=== PATIENT | male | born 1955 | race Caucasian/White ===

== ENCOUNTER → 2021-05-11 | Outpatient (CLI) | payer MEDICARE | LOC: ORTHO 08:45 | PROVIDERS: ATTEND Orthopaedic Surgery | DX: M65.331 Trigger finger, right middle finger (principal); M65.342 Trigger finger, left ring finger; M65.341 Trigger finger, right ring finger | CPT/HCPCS: 99202 ==

== ENCOUNTER 2021-06-07 05:30 | Outpatient (CLI) | payer MEDICARE ==
[~2021-06-07] VITALS: Ht 188 cm; Wt 111.9 kg
[2021-06-07] MEDS ORDERED: LOSA100T57 PO (10:23)
[2021-06-07] MEDS ORDERED: [UNRECOGNIZED DRUG - CODE] PO (10:23)
[2021-06-07] MEDS ORDERED: ATOR40TA70 PO (10:23)
[2021-06-07] MEDS ORDERED: ASPI-999 PO (10:23)
[2021-06-07] MEDS ORDERED: METO50TA7 PO (10:23)
[2021-06-07] MEDS ORDERED: HYDR25TA4 PO (10:23)
== END 2021-06-07 10:26 | disposition home or self-care (01) ==
LOC: PREOP 05:30
PROVIDERS: ATTEND Orthopaedic Surgery
DX: Z01.818 Encounter for other preprocedural examination (principal)

== ENCOUNTER 2021-06-14 06:21 | Day surgery (SDC) | payer MEDICARE ==
[~2021-06-14] VITALS: Ht 188 cm; Wt 111.9 kg
[2021-06-14] VITALS (7 sets, daily range): BP systolic 101–179; BP diastolic 74–106
[~2021-06-14 06:21] MED LIST: ASPI-999 PO; ATOR40TA70 PO; HYDR25TA4 PO; LOSA100T57 PO; METO50TA7 PO; [UNRECOGNIZED DRUG - CODE] PO
--- OUTSIDE RECORDS SUMMARY | 2021-06-14 06:24 | XMS REPORT | CCD ---
Author Author Ross Rousseau D.O., DO [facility] Address [address] [place] [address] Phone Care Team Providers Care Disc Pad Grinder Name Role Phone PP Unavailable CCM Unavailable Summary Purpose Interface Exchange Insurance Providers Payer name Policy type / Coverage type Covered republican ID Effective Begin Date Effective End Date WPS MEDICARE PART B [place] Medicare Part B [id number] Unknown AAR Medicare Part B [id number] Unknown Family History Family History data not found Social History Social History Element Codes Description Effective Dates Marital status Unknown 05/04/2021 Number of children Unknown 1 05/04/2021 Employment Unknown Retired 05/04/[address]: 712289331 Has never smoked or chewed tobacco 05/04/[address]: 729283 Currently drinks alcohol 05/04 Has the patient ever used illegal drugs? Unknown Has nev er used illegal drugs 05/04/2021 Allergies, Adverse Reactions, Alerts Substance Reaction Codes Entered Date Inactivated Date Status * NO KNOWN FOOD ALLERGIES Unknown 05/04/2021 No Inactiv e Date Active * NO KNOWN ENVIRONMENTAL ALLERGIES Unknown 05/04/2021 N o Inactive Date Active * NO KNOWN DRUG ALLERGIES Unknown 05/04/2021 No Inactiv e Date Active Problems Condition Codes Effective Dates Condition Status Essential (primary) hypertension ICD-10: I10 ICD-9: 401.9 05/04/2021 Active Mixed hyperlipidemia ICD-10: E78.2 ICD-9: 272.2 05/04/2021 Active Obstructive sleep apnea ICD-10: G47.33 ICD-9: 327.23 05/04/2021 Active Skipped beats ICD-10: I45.9 ICD-9: 427.9 05/04/2021 Active Hypertension Unknown 05/04/2021 Active Trigger finger, left ring finger ICD-10: M65.342 ICD-9: 727.03 05/04/2021 Active Trigger finger, right ring finger ICD-10: M65.341 ICD-9: 727.03 05/04/2021 Active Medications Medication Codes Instructions Start Date Stop Date Status Fill Instructions aspirin 81 mg tablet,delayed release RxNorm: 082647 Take 1 Tabl et(s) Oral QD 05/04/2021 No Stop Date Active metoprolol succinate ER 50 mg tablet,extended release 24 hr RxNorm: 409678 Take 1 Tablet(s) Oral QD 05/04/2021 No Stop Date Active atorvastatin 40 mg tablet RxNorm: 260201 Take 1 Tablet(s) Oral QD 1 07/04/2020 No Stop Date Active hydrochlorothiazide 25 mg tablet RxNorm: 457940 Take 1 Tablet(s ) Oral QAM 05/04/2021 08/01/2021 Active losartan 100 mg tablet RxNorm: 427466 Take 1 Tablet(s) Oral QD 08/202008/01/2021 Active glucosamine 500 dk-cezjoqbkn-ofurbbum comp 400 mg-D3 667 uni t-C-Mn cap RxNorm: Take 2 Capsule(s) Oral QD 05/04/2021 No Stop Date Active Medication Administered No Medication Administered data Immunizations No Immunization data Results No Results data Procedures Procedure Codes Date ROUTINE VENIPUNCTURE CPT-4: 55607 05/05/2021 ASSAY OF FREE THYROXINE CPT-4: 63764 05/05/2021 ASSAY THYROID STIM HORMONE CPT-4: 52900 05/05/2021 COMPREHEN METABOLIC PANEL CPT-4: 90185 05/05/2021 COMPLETE CBC W/AUTO DIFF WBC CPT-4: 57775 05/05/2021 LIPID PANEL CPT-4: 47809 05/05/2021 Vital Signs Date Vital 05/04/2021 Blood Pressure 1: 134/86 Code: 8480-6 Bl ood Pressure 2: 132/84 Code: 8480-6 BMI: 32.5 Code: 57358-9 Heart Rate 1: 60 bpm Height: 6'1" Code: 8302-2 Respiratory Rate: 20 bpm SpO2: 96% Temperature: 36.8 (C) / 98.2 (F) We ight: 246 lbs Code: 50720-6 Functional Status No Functional Status data Reason For Visit Reason For Visit Effective Dates Notes lab draw 05/05/2021 ~generic 05/04/2021 New Patient---jose e box visit Encounters Encounter Performer Location Codes Date () NURSE/OUTPATIENT VISIT EST Diagnosis: Essential (primary) hypertension[ICD10: I10] Diagnosis: Mixed hyperlipidemia[ICD10: E78.2] Diagnosis: Obstructive sleep apnea[ICD10: G47.33] Diagnosis: Skipped beats[ICD10: I45.9] Nemo MENDOZA S. Mathew [employer] CPT-4: 61661 05/05/2021 ([id number]) OFFICE/OUTPATIENT VISIT NEW Diagnosis: Essential (primary) hypertension[ICD10: I10] Diagnosis: Mixed hyperlipidemia[ICD10: E78.2] Diagnosis: Trigger finger, left ring finger[ICD10: M65.342] Diagnosis: Trigger finger, right ring finger[ICD10: M65.341] Diagnosis: Skipped beats[ICD10: I45.9] Diagnosis: Obstructive sleep apnea[ICD10: G47.33] eNmo CHARLES DanicaJulian [employer] CPT-4: 22355 05/04/2021 Plan of Care Planned Activity Notes Codes Status Date Visit Diagnosis Plan: Obstructive sleep apnea Discussi on: Never used CPAP due to problems getting machine so has adjustable bed that uses to elevate head of bed to treat ICD-9 : 327.23 ICD-10 : G47.33 05/04/2021 Visit Diagnosis Plan: Skipped beats Discussion: Given names of cardiologists to establish with--has been 2 years since had workup ICD-9 : 427.9 ICD-10 : I45.9 05/04/2021 Visit Diagnosis Plan: Trigger finger, left ring finger Discussion: Referral to Dr. Nguyen to discuss surgical correction ICD-9 : 727.03 ICD-10 : M65.342 05/04/2021 Visit Diagnosis Plan: Mixed hyperlipidemia Discussion: Return in AM for fasting CMP, lipids Follow Up: 6 months ICD-9 : 272.2 ICD-10 : E78.2 05/04/2021 Visit Diagnosis Plan: Essential (primary) hypertension Discussion: Stable Had COVID vaccines and booster Had flu shot Has had both pneumonia shots Has had Shigrix shots Colonoscopy due in 2023 Will return in AM for fasting lab ICD-9 : 401.9 ICD-10 : I10 05/04/2021 Appointment: [facility] [phone] [facility] [facility] 05/04/2021 Instructions No Instructions Medical Equipment No Medical Equipment data Health Concerns Section Health Concerns data not found Goals Section Goals data not found Interventions Section Interventions data not found Health Status Evaluations/Outcomes Section Health Status Evaluations/Outcomes data not found Advance Directives No Advance Directive data
--- OUTSIDE RECORDS SUMMARY | 2021-06-14 06:24 | XMS REPORT | CCD ---
Author Author Ross Rousseau D.O., DO [facility] Address [address] [place] [address] Phone Care Team Providers Care Inspector Integrated [employer] Name Role Phone PP Unavailable CCM Unavailable Summary Purpose Interface Exchange Insurance Providers Payer name Policy type / Coverage type Covered constitution party ID Effective Begin Date Effective End Date WPS MEDICARE PART B [place] Medicare Part B [id number] Unknown AARP Medicare Part B [id number] Unknown Family History Family History data not found Social History Social History Element Codes Description Effective Dates Marital status Unknown 05/04/2021 Number of children Unknown 1 05/04/2021 Employment Unknown Retired 05/04/[address]: 711968962 Has never smoked or chewed tobacco 05/04/[address]: 636633 Currently drinks alcohol 05/04 Has the patient [...] Start Date Stop Date Status Fill Instructions losartan 100 mg tablet RxNorm: 075550 Take 1 Tablet(s) Oral QD 01/202111/05/2021 Active hydrochlorothiazide 25 mg tablet RxNorm: 179126 Take 1 Tablet(s ) Oral QAM 05/10/2021 11/05/2021 Active atorvastatin 40 mg tablet RxNorm: 244338 Take 1 Tablet(s) Oral QD 1 07/10/2020 11/05/2021 Active metoprolol succinate ER 50 mg tablet,extended release 24 hr RxNorm: 606341 Take 1 Tablet(s) Oral QD 05/10/2021 11/05/2021 Active aspirin 81 mg tablet,delayed release RxNorm: 634471 Take 1 Tabl et(s) Oral QD 05/04/2021 No Stop Date Active metoprolol succinate ER 50 mg tablet,extended release 24 hr RxNorm: 255014 Take 1 Tablet(s) Oral QD 05/04/2021 05/10/2021 Inactive atorvastatin 40 mg tablet RxNorm: 015287 Take 1 Tablet(s) Oral QD 1 07/04/2020 05/10/2021 Inactive hydrochlorothiazide 25 mg tablet RxNorm: 790125 Take 1 Tablet(s ) Oral QAM 05/04/2021 05/10/2021 Inactive losartan 100 mg tablet RxNorm: 108051 Take 1 Tablet(s) Oral QD 08/202005/10/2021 Inactive glucosamine 500 mw-qtfonfjap-wkcdtodj comp 400 mg-D3 667 uni t-C-Mn cap RxNorm: Take 2 Capsule(s) Oral QD 05/04/2021 No Stop Date Active Medication Administered No Medication Administered data Immunizations No Immunization data Results Observation Observation Code Item Item Code Result Date S ervice Location [facility] 45100 Cholesterol 126 mg/dL 05/05/2021 Unkno wn [facility] 26098 Triglyceride 81 mg/dL 05/05/2021 Unkn own [facility] 34783 HDL CHOLESTEROL 51 mg/dL 05/05/2021 U nknown [facility] 17369 Chol/HDL Ratio 2.47 ratio 05/05/2021 U nknown [facility] 18675 NON-HDL Chol 75 mg/dL 05/05/2021 Unkn own [facility] 33118 LDL Cholesterol 59 mg/dL 05/05/2021 U nknown FREE T4 91328 T4 Free 0.81 ng/dL 05/05/2021 Unknown COMPREHENSIVE METABOLIC 87122 AST 18 U/L 2020 Unknown COMPRE[facility]ENS[facility] MET[facility]OL[facility] 64513 ALT 13 U/L 2020 Unknown [facility] 13453 BUN 11 mg/dL 2020 Unknown [facility] 54434 ALBUMIN 4.0 g/dL 2020 Unknown COMPREHENSIVE [facility]OLIC 89631 CHLORIDE 105 mmol/L 05/05 Unknown COMPREHENSIVE METABOLIC 72722 Bili Total 0.9 mg/dL 05/05 Unknown COMPREHENSIVE METABOLIC 11179 ALK PHOS 66 U/L 2020 Unknown COMPREHENSIVE [facility] 44033 SODIUM 143 mmol/L 05/05 Unknown COMPREHENSIVE METABOLIC 65776 CREATININE 0.80 mg/dL 08/2020 Unknown COMPREHENSIVE METABOLIC 09171 CALCIUM 9.0 mg/dL 2020 Unknown COMPREHENSIVE METABOLIC 74795 POTASSIUM 3.6 mmol/L 05/05 Unknown COMPREHENSIVE METABOLIC 67176 Total Protein 6.3 g/dL Unknown [facility] 37952 Glucose 93 mg/dL 2020 Unknown COMPREHENSIVE METABOLIC 30825 Bicarbonate 30 mmol/L 08/2020 Unknown COMPREHENSIVE METABOLIC 44888 AGAP 8 mmol/L 2020 Unknown GFR CALC [id number] GFR Non Afr Amr >60 mL/min 05/05/2021 Un known GFR CALC 1877649 GFR Afr Amr >60 mL/min 05/05/2021 Unknow n THYROID STIMULATING HORMONE 38733 TSH 1.590 uIU/mL 05/05/2021 Unknown COMPLETE BLOOD COUNT [id number] WBC 5.1 10e9/L 05/05/20 21 Unknown COMPLETE BLOOD COUNT 8075470 RBC 4.76 10e12/L 2020 Unknown COMPLETE BLOOD COUNT [id number] HEMOGLOBIN 15.0 g/dL 05/05/20 21 Unknown COMPLETE BLOOD COUNT [id number] HEMATOCRIT 45.5 % 11/03/20 21 Unknown COMPLETE BLOOD COUNT 3017470 MCV 95.6 fL 1 Unknown COMPLETE BLOOD COUNT [id number] MCH 31.5 pg 1 Unknown COMPLETE BLOOD COUNT 9795901 MCHC 33.0 g/dL 1 Unknown COMPLETE BLOOD COUNT 0056611 PLATELET COUNT 184 10e9/L 08/2020 Unknown COMPLETE BLOOD COUNT 4036929 Mean Plt Volume 11.3 fL 08/2020 Unknown COMPLETE BLOOD COUNT 6507764 Neut Auto 60.8 % 1 Unknown COMPLETE BLOOD COUNT 9148759 Lymph Auto 26.4 % 05/05/20 21 Unknown COMPLETE BLOOD COUNT [id number] [place] Auto 8.9 % 1 Unknown COMPLETE BLOOD COUNT 3148686 RDW 13.0 % 1 Unknown COMPLETE BLOOD COUNT 0349557 Eos Auto 3.1 % 1 Unknown COMPLETE BLOOD COUNT 9151310 Baso Auto 0.8 % 1 Unknown COMPLETE BLOOD COUNT 0556840 Neutrophil Abs 3.10 10e9/L Unknown COMPLETE BLOOD COUNT 1665602 Lymphocyte Abs 1.35 10e9/L Unknown COMPLETE BLOOD COUNT 9740048 Monocyte Abs 0.45 10e9/L 08/2020 Unknown COMPLETE BLOOD COUNT 4555183 Eosinophil Abs 0.16 10e9/L Unknown COMPLETE BLOOD COUNT 3227621 RDW-SD 44.3 fL 1 Unknown COMPLETE BLOOD COUNT [id number] Basophil Abs 0.04 10e9/L 08/2020 Unknown Procedures Procedure Codes Date ROUTINE VENIPUNCTURE CPT-4: 37669 05/05/2021 ASSAY OF FREE THYROXINE CPT-4: 39783 05/05/2021 ASSAY THYROID STIM HORMONE CPT-4: 86299 05/05/2021 COMPREHEN METABOLIC PANEL CPT-4: 88083 05/05/2021 COMPLETE CBC W/AUTO DIFF WBC CPT-4: 53009 05/05/2021 LIPID PANEL CPT-4: 53146 05/05/2021 Vital Signs Date Vital 05/04/2021 Blood Pressure 1: 134/86 Code: 8480-6 Bl ood Pressure 2: 132/84 Code: 8480-6 BMI: 32.5 Code: 41987-4 Heart Rate 1: 60 bpm Height: 6'1" Code: 8302-2 Respiratory Rate: 20 bpm SpO2: 96% Temperature: 36.8 (C) / 98.2 (F) We ight: 246 lbs Code: 95183-0 Functional Status No Functional Status data Reason For Visit Reason For Visit Effective Dates Notes lab draw 05/05/2021 ~generic 05/04/2021 New Patient---establ ishing visit Encounters Encounter Performer Location Codes Date () NURSE/OUTPATIENT VISIT EST Diagnosis: Essential (primary) hypertension[ICD10: I10] Diagnosis: Mixed hyperlipidemia[ICD10: E78.2] Diagnosis: Obstructive sleep apnea[ICD10: G47.33] Diagnosis: Skipped beats[ICD10: I45.9] Nemo PASTRANA DO [employer] CPT-4: 02831 05/05/2021 (18076) OFFICE/OUTPATIENT VISIT NEW Diagnosis: Essential (primary) hypertension[ICD10: I10] Diagnosis: Mixed hyperlipidemia[ICD10: E78.2] Diagnosis: Trigger finger, left ring finger[ICD10: M65.342] Diagnosis: Trigger finger, right ring finger[ICD10: M65.341] Diagnosis: Skipped beats[ICD10: I45.9] Diagnosis: Obstructive sleep apnea[ICD10: G47.33] Nemo ROUSSEAU DO [employer] CPT-4: 10495 05/04/2021 Plan of Care Planned Activity Notes Codes Status Date Appointment: [facility] [phone] [id number] [facility] 05/05/2021 Visit Diagnosis Plan: Obstructive sleep apnea Discussi [...] I10 05/04/2021 Appointment: [facility] [phone] [facility] NEW PATIENT 05/04/2021 Instructions No Instructions Medical Equipment No Medical Equipment data Health Concerns Section Health Concerns data not found Goals Section Goals data not found Interventions Section Interventions data not found Health Status Evaluations/Outcomes Section Health Status Evaluations/Outcomes data not found Advance Directives No Advance Directive data
--- OUTSIDE RECORDS SUMMARY | 2021-06-14 06:24 | XMS REPORT | CCD ---
Author Author Ross Rousseau D.O., DO [facility] Address [address] [place] [address] Phone Care Team Providers Care Superintendent Of Generation Name Role Phone PP Unavailable CCM Unavailable Summary Purpose Interface Exchange Insurance Providers Payer name Policy type / Coverage type Covered democrat ID Effective Begin Date Effective End Date WPS MEDICARE PART B [place] Medicare Part B [id number] Unknown AAR Medicare Part B [id number] Unknown Family History Family History data not found Social History Social History Element Codes Description Effective Dates Marital status Unknown 05/04/2021 Number of children Unknown 1 05/04/2021 Employment Unknown Retired 05/04/[address]: 400622241 Has never smoked or chewed tobacco 05/04/[address]: 766798 Currently drinks alcohol 05/04 Has the patient [...] Problems Condition Codes Effective Dates Condition Status Hypertension Unknown 05/04/2021 Active Essential (primary) hypertension ICD-10: I10 ICD-9: 401.9 05/04/2021 Active Mixed hyperlipidemia ICD-10: E78.2 ICD-9: 272.2 05/04/2021 Active Obstructive sleep apnea ICD-10: G47.33 ICD-9: 327.23 05/04/2021 Active Skipped beats ICD-10: I45.9 ICD-9: 427.9 05/04/2021 Active Trigger finger, left ring finger ICD-10: M65.342 ICD-9: 727.03 05/04/2021 Active Trigger finger, right ring finger ICD-10: M65.341 ICD-9: 727.03 05/04/2021 Active Medications Medication Codes Instructions Start Date Stop Date Status Fill Instructions aspirin 81 mg tablet,delayed release RxNorm: 327895 Take 1 Tabl et(s) Oral QD 05/04/2021 No Stop Date Active metoprolol succinate ER 50 mg tablet,extended release 24 hr RxNorm: 490969 Take 1 Tablet(s) Oral QD 05/04/2021 No Stop Date Active atorvastatin 40 mg tablet RxNorm: 586515 Take 1 Tablet(s) Oral QD 1 07/04/2020 No Stop Date Active hydrochlorothiazide 25 mg tablet RxNorm: 136422 Take 1 Tablet(s ) Oral QAM 05/04/2021 08/01/2021 Active losartan 100 mg tablet RxNorm: 870502 Take 1 Tablet(s) Oral QD 08/202008/01/2021 Active glucosamine 500 vi-nqxiehcfs-jnjqzbhv comp 400 mg-D3 667 uni t-C-Mn cap RxNorm: Take 2 Capsule(s) Oral QD 05/04/2021 No Stop Date Active Medication Administered No Medication Administered data Immunizations No Immunization data Results No Results data Procedures No Procedures data Vital Signs Date Vital 05/04/2021 Blood Pressure 1: 134/86 Code: 8480-6 Bl ood Pressure 2: 132/84 Code: 8480-6 BMI: 32.5 Code: 78786-1 Heart Rate 1: 60 bpm Height: 6'1" Code: 8302-2 Respiratory Rate: 20 bpm SpO2: 96% Temperature: 36.8 (C) / 98.2 (F) We ight: 246 lbs Code: 19187-7 Functional Status No Functional Status data Reason For Visit Reason For Visit Effective Dates Notes ~generic 05/04/2021 New Patient---establ [facility] visit Encounters Encounter Performer Location Codes Date (36035) OFFICE/OUTPATIENT VISIT NEW Diagnosis: Essential (primary) hypertension[ICD10: I10] Diagnosis: Mixed hyperlipidemia[ICD10: E78.2] Diagnosis: Trigger finger, left ring finger[ICD10: M65.342] Diagnosis: Trigger finger, right ring finger[ICD10: M65.341] Diagnosis: Skipped beats[ICD10: I45.9] Diagnosis: Obstructive sleep apnea[ICD10: G47.33] Nemo CHARLES DanicaJulian ROUSSEAU DO [facility] CPT-4: 22959 05/04/2021 Plan of Care Planned Activity Notes [...] ICD-9 : 401.9 ICD-10 : I10 05/04/2021 Instructions No Instructions Medical Equipment No Medical Equipment data Health Concerns Section Health Concerns data not found Goals Section Goals data not found Interventions Section Interventions data not found Health Status Evaluations/Outcomes Section Health Status Evaluations/Outcomes data not found Advance Directives No Advance Directive data
--- OUTSIDE RECORDS SUMMARY | 2021-06-14 06:24 | XMS REPORT | CCD ---
Author Author Ross Rousseau D.O., DO [facility] Address [address] [place] [address] Phone Care Team Providers Care Housekeeping Supervisor Name Role Phone PP Unavailable CCM Unavailable Summary Purpose Interface Exchange Insurance Providers Payer name Policy type / Coverage type Covered alliance party ID Effective Begin Date Effective End Date WPS MEDICARE PART B [place] Medicare Part B [id number] Unknown AARP Medicare Part B [id number] Unknown Family History Family History data not found Social History Social History Element Codes Description Effective Dates Marital status Unknown 05/04/2021 Number of children Unknown 1 05/04/2021 Employment Unknown Retired 05/04/[address]: 805209146 Has never smoked or chewed tobacco 05/04/[address]: 506435 Currently drinks alcohol 05/04 Has the patient [...] Fill Instructions losartan 100 mg tablet RxNorm: 625631 Take 1 Tablet(s) Oral QD 01/202111/05/2021 Active metoprolol succinate ER 50 mg tablet,extended release 24 hr RxNorm: 696145 Take 1 Tablet(s) Oral QD 05/10/2021 11/05/2021 Active aspirin 81 mg tablet,delayed release RxNorm: 278512 Take 1 Tabl et(s) Oral QD 05/04/2021 No Stop Date Active metoprolol succinate ER 50 mg tablet,extended release 24 hr RxNorm: 354595 Take 1 Tablet(s) Oral QD 05/04/2021 05/10/2021 Inactive atorvastatin 40 mg tablet RxNorm: 090519 Take 1 Tablet(s) Oral QD 1 07/04/2020 No Stop Date Active hydrochlorothiazide 25 mg tablet RxNorm: 779859 Take 1 Tablet(s ) Oral QAM 05/04/2021 08/01/2021 Active losartan 100 mg tablet RxNorm: 106820 Take 1 Tablet(s) Oral QD 08/202005/10/2021 Inactive glucosamine 500 xp-kxutjsloq-limjzfzp comp 400 mg-D3 667 uni t-C-Mn cap RxNorm: Take 2 Capsule(s) Oral QD 05/04/2021 No Stop Date Active Medication Administered No Medication Administered data Immunizations No Immunization data Results Observation Observation Code Item Item Code Result Date S ervice Location [facility] 61784 Cholesterol 126 mg/dL 05/05/2021 Unkno wn [facility] 01882 Triglyceride 81 mg/dL 05/05/2021 Unkn own [facility] 28990 HDL CHOLESTEROL 51 mg/dL 05/05/2021 U nknown [facility] 83866 Chol/HDL Ratio 2.47 ratio 05/05/2021 U nknown [facility] 68234 NON-HDL Chol 75 mg/dL 05/05/2021 Unkn own [facility] 11808 LDL Cholesterol 59 mg/dL 05/05/2021 U nknown FREE T4 37401 T4 Free 0.81 ng/dL 05/05/2021 Unknown COMPREHENSIVE METABOLIC 03368 AST 18 U/L 2020 Unknown COMPREHENSIVE METABOLIC 19052 ALT 13 U/L 2020 Unknown COMPREHENSIVE [facility]OL[facility] 66276 BUN 11 mg/dL 2020 Unknown COMPREHENSIVE METABOLIC 51919 ALBUMIN 4.0 g/dL 2020 Unknown COMPREHENSIVE METABOLIC 09645 CHLORIDE 105 mmol/L 05/05 Unknown COMPREHENSIVE METABOLIC 51179 Bili Total 0.9 mg/dL 05/05 Unknown COMPREHENSIVE METABOLIC 02319 ALK PHOS 66 U/L 2020 Unknown COMPREHENSIVE METABOLIC 77790 SODIUM 143 mmol/L 05/05 Unknown COMPREHENSIVE METABOLIC 63517 CREATININE 0.80 mg/dL 08/2020 Unknown COMPREHENSIVE METABOLIC 80448 CALCIUM 9.0 mg/dL 2020 Unknown COMPREHENSIVE METABOLIC 43828 POTASSIUM 3.6 mmol/L 05/05 Unknown COMPREHENSIVE METABOLIC 96357 Total Protein 6.3 g/dL Unknown COMPREHENSIVE [facility]OLIC 89168 Glucose 93 mg/dL 2020 Unknown COMPREHENSIVE METABOLIC 91460 Bicarbonate 30 mmol/L 08/2020 Unknown COMPREHENSIVE METABOLIC 46789 AGAP 8 mmol/L 2020 Unknown GFR CALC 8283174 GFR Non Afr Amr >60 mL/min 05/05/2021 Un known GFR CALC 7437898 GFR Afr Amr >60 mL/min 05/05/2021 Unknow n THYROID STIMULATING HORMONE 07665 TSH 1.590 uIU/mL 05/05/2021 Unknown COMPLETE BLOOD COUNT 4566763 WBC 5.1 10e9/L 05/05/20 21 Unknown COMPLETE BLOOD COUNT 9625527 RBC 4.76 10e12/L 2020 Unknown COMPLETE BLOOD COUNT 2272149 HEMOGLOBIN 15.0 g/dL 05/05/20 21 Unknown COMPLETE BLOOD COUNT 1803291 HEMATOCRIT 45.5 % 05/05/20 21 Unknown COMPLETE BLOOD COUNT 6131743 MCV 95.6 fL 1 Unknown COMPLETE BLOOD COUNT 8241564 MCH 31.5 pg 1 Unknown COMPLETE BLOOD COUNT 5366836 MCHC 33.0 g/dL 1 Unknown COMPLETE BLOOD COUNT 9547290 PLATELET COUNT 184 10e9/L 08/2020 Unknown COMPLETE BLOOD COUNT 2698302 Mean Plt Volume 11.3 fL 08/2020 Unknown COMPLETE BLOOD COUNT 6550802 Neut Auto 60.8 % 1 Unknown COMPLETE BLOOD COUNT 8749824 Lymph Auto 26.4 % 05/05/20 21 Unknown COMPLETE BLOOD COUNT 1537989 [place] Auto 8.9 % 1 Unknown COMPLETE BLOOD COUNT 7662412 RDW 13.0 % 1 Unknown COMPLETE BLOOD COUNT 6259285 Eos Auto 3.1 % 1 Unknown COMPLETE BLOOD COUNT 8049762 Baso Auto 0.8 % 1 Unknown COMPLETE BLOOD COUNT 1791166 Neutrophil Abs 3.10 10e9/L Unknown COMPLETE BLOOD COUNT 4645172 Lymphocyte Abs 1.35 10e9/L Unknown COMPLETE BLOOD COUNT 6300384 Monocyte Abs 0.45 10e9/L 08/2020 Unknown COMPLETE BLOOD COUNT 6884608 Eosinophil Abs 0.16 10e9/L Unknown COMPLETE BLOOD COUNT 9560155 RDW-SD 44.3 fL 1 Unknown COMPLETE BLOOD COUNT [id number] Basophil Abs 0.04 10e9/L 08/2020 Unknown Procedures Procedure Codes Date ROUTINE VENIPUNCTURE CPT-4: 87087 05/05/2021 ASSAY OF FREE THYROXINE CPT-4: 81639 05/05/2021 ASSAY THYROID STIM HORMONE CPT-4: 86940 05/05/2021 COMPREHEN METABOLIC PANEL CPT-4: 72108 05/05/2021 COMPLETE CBC W/AUTO DIFF WBC CPT-4: 98497 05/05/2021 LIPID PANEL CPT-4: 50518 05/05/2021 Vital Signs Date Vital 05/04/2021 Blood Pressure 1: 134/86 Code: 8480-6 Bl ood Pressure 2: 132/84 Code: 8480-6 BMI: 32.5 Code: 03685-8 Heart Rate 1: 60 bpm Height: 6'1" Code: 8302-2 Respiratory Rate: 20 bpm SpO2: 96% Temperature: 36.8 (C) / 98.2 (F) We ight: 246 lbs Code: 35023-7 Functional Status No Functional Status data Reason For Visit Reason For Visit Effective Dates Notes lab draw 05/05/2021 ~generic 05/04/2021 New Patient---kandyl isauro visit Encounters Encounter Performer Location Codes Date () NURSE/OUTPATIENT VISIT EST Diagnosis: Essential (primary) hypertension[ICD10: I10] Diagnosis: Mixed hyperlipidemia[ICD10: E78.2] Diagnosis: Obstructive sleep apnea[ICD10: G47.33] Diagnosis: Skipped beats[ICD10: I45.9] Nemo PASTRANA DO [employer] CPT-4: 59645 05/05/2021 (47897) OFFICE/OUTPATIENT VISIT NEW Diagnosis: Essential (primary) hypertension[ICD10: I10] Diagnosis: Mixed hyperlipidemia[ICD10: E78.2] Diagnosis: Trigger finger, left ring finger[ICD10: M65.342] Diagnosis: Trigger finger, right ring finger[ICD10: M65.341] Diagnosis: Skipped beats[ICD10: I45.9] Diagnosis: Obstructive sleep apnea[ICD10: G47.33] Nemo ROUSSEAU DO [employer] CPT-4: 90296 05/04/2021 Plan of Care Planned Activity Notes Codes Status Date Appointment: [facility] [phone] [facility] [facility] 05/05/2021 Visit Diagnosis Plan: Obstructive [...] I10 05/04/2021 Appointment: [facility] [phone] [facility] NEW PATIENT 05/04/2021 Instructions No Instructions Medical Equipment No Medical Equipment data Health Concerns Section Health Concerns data not found Goals Section Goals data not found Interventions Section Interventions data not found Health Status Evaluations/Outcomes Section Health Status Evaluations/Outcomes data not found Advance Directives No Advance Directive data
--- OUTSIDE RECORDS SUMMARY | 2021-06-14 06:24 | XMS REPORT | CCD ---
Author Author Ross Rousseau D.O., DO [facility] Address [address] [place] [address] Phone Care Team Providers Care Issuer Name Role Phone PP Unavailable CCM Unavailable Summary Purpose Interface Exchange Insurance Providers Payer name Policy type / Coverage type Covered libertarian ID Effective Begin Date Effective End Date WPS MEDICARE PART B [place] Medicare Part B [id number] Unknown AAR Medicare Part B [id number] Unknown Family History Family History data not found Social History Social History Element Codes Description Effective Dates Marital status Unknown 05/04/2021 Number of children Unknown 1 05/04/2021 Employment Unknown Retired 05/04/[address]: 318672853 Has never smoked or chewed tobacco 05/04/[address]: 750344 Currently drinks alcohol 05/04 Has the patient [...] Instructions aspirin 81 mg tablet,delayed release RxNorm: 560534 Take 1 Tabl et(s) Oral QD 05/04/2021 No Stop Date Active metoprolol succinate ER 50 mg tablet,extended release 24 hr RxNorm: 708744 Take 1 Tablet(s) Oral QD 05/04/2021 No Stop Date Active atorvastatin 40 mg tablet RxNorm: 033234 Take 1 Tablet(s) Oral QD 1 07/04/2020 No Stop Date Active hydrochlorothiazide 25 mg tablet RxNorm: 541985 Take 1 Tablet(s ) Oral QAM 05/04/2021 08/01/2021 Active losartan 100 mg tablet RxNorm: 486898 Take 1 Tablet(s) Oral QD 08/202008/01/2021 Active glucosamine 500 mm-rvrhzwnaj-qptmgxos comp 400 mg-D3 667 uni t-C-Mn cap RxNorm: Take 2 Capsule(s) Oral QD 05/04/2021 No Stop Date Active Medication Administered No Medication Administered data Immunizations No Immunization data Results No Results data Procedures Procedure Codes Date ROUTINE VENIPUNCTURE CPT-4: 80427 05/05/2021 ASSAY OF FREE THYROXINE CPT-4: 73954 05/05/2021 ASSAY THYROID STIM HORMONE CPT-4: 32784 05/05/2021 COMPREHEN METABOLIC PANEL CPT-4: 37114 05/05/2021 COMPLETE CBC W/AUTO DIFF WBC CPT-4: 05982 05/05/2021 LIPID PANEL CPT-4: 36740 05/05/2021 Vital Signs Date Vital 05/04/2021 Blood Pressure 1: 134/86 Code: 8480-6 Bl ood Pressure 2: 132/84 Code: 8480-6 BMI: 32.5 Code: 89515-1 Heart Rate 1: 60 bpm Height: 6'1" Code: 8302-2 Respiratory Rate: 20 bpm SpO2: 96% Temperature: 36.8 (C) / 98.2 (F) We ight: 246 lbs Code: 19389-8 Functional Status No Functional Status data Reason For Visit Reason For Visit Effective Dates Notes lab draw 05/05/2021 ~generic 05/04/2021 New Patient---jose e box visit Encounters Encounter Performer Location Codes Date () NURSE/OUTPATIENT VISIT EST Diagnosis: Essential (primary) hypertension[ICD10: I10] Diagnosis: Mixed hyperlipidemia[ICD10: E78.2] Diagnosis: Obstructive sleep apnea[ICD10: G47.33] Diagnosis: Skipped beats[ICD10: I45.9] Nemo MENDOZA S. Mathew [employer] CPT-4: 02151 05/05/2021 (51330) OFFICE/OUTPATIENT VISIT NEW Diagnosis: Essential (primary) hypertension[ICD10: I10] Diagnosis: Mixed hyperlipidemia[ICD10: E78.2] Diagnosis: Trigger finger, left ring finger[ICD10: M65.342] Diagnosis: Trigger finger, right ring finger[ICD10: M65.341] Diagnosis: Skipped beats[ICD10: I45.9] Diagnosis: Obstructive sleep apnea[ICD10: G47.33] Nemo CHARLES DanicaJulian [employer] CPT-4: 02534 05/04/2021 Plan of Care Planned Activity Notes [...] I10 05/04/2021 Appointment: [facility] [phone] [facility] [facility] 05/04/2021 Instructions No Instructions Medical Equipment No Medical Equipment data Health Concerns Section Health Concerns data not found Goals Section Goals data not found Interventions Section Interventions data not found Health Status Evaluations/Outcomes Section Health Status Evaluations/Outcomes data not found Advance Directives No Advance Directive data
--- OUTSIDE RECORDS SUMMARY | 2021-06-14 06:24 | XMS REPORT | CCD ---
Author Author Ross Rousseau D.O., DO [facility] Address [address] [place] [address] Phone Care Team Providers Care Shift Manager Name Role Phone PP Unavailable CCM Unavailable Summary Purpose Interface Exchange Insurance Providers Payer name Policy type / Coverage type Covered constitution party ID Effective Begin Date Effective End Date WPS MEDICARE PART B [place] Medicare Part B [id number] Unknown AAR Medicare Part B [id number] Unknown Family History Family History data not found Social History Social History Element Codes Description Effective Dates Marital status Unknown 05/04/2021 Number of children Unknown 1 05/04/2021 Employment Unknown Retired 05/04/[address]: 929027958 Has never smoked or chewed tobacco 05/04/[address]: 459061 Currently drinks alcohol 05/04 Has the patient [...] Instructions aspirin 81 mg tablet,delayed release RxNorm: 491541 Take 1 Tabl et(s) Oral QD 05/04/2021 No Stop Date Active metoprolol succinate ER 50 mg tablet,extended release 24 hr RxNorm: 541702 Take 1 Tablet(s) Oral QD 05/04/2021 No Stop Date Active atorvastatin 40 mg tablet RxNorm: 538322 Take 1 Tablet(s) Oral QD 1 07/04/2020 No Stop Date Active hydrochlorothiazide 25 mg tablet RxNorm: 535302 Take 1 Tablet(s ) Oral QAM 05/04/2021 08/01/2021 Active losartan 100 mg tablet RxNorm: 097292 Take 1 Tablet(s) Oral QD 08/202008/01/2021 Active glucosamine 500 ml-tuvcfdzrd-fvihxpbw comp 400 mg-D3 667 uni t-C-Mn cap RxNorm: Take 2 Capsule(s) Oral QD 05/04/2021 No Stop Date Active Medication Administered No Medication Administered data Immunizations No Immunization data Results Observation Observation Code Item Item Code Result Date [facility] Location COMPLETE BLOOD COUNT [id number] WBC 5.1 10e9/L 05/05/20 21 Unknown COMPLETE BLOOD COUNT [id number] RBC 4.76 10e12/L 2020 Unknown COMPLETE BLOOD COUNT [id number] HEMOGLOBIN 15.0 g/dL 05/05/20 21 Unknown COMPLETE BLOOD COUNT [id number] HEMATOCRIT 45.5 % 05/05/20 21 Unknown COMPLETE BLOOD COUNT [id number] MCV 95.6 fL 1 Unknown COMPLETE BLOOD COUNT [id number] MCH 31.5 pg 1 Unknown COMPLETE BLOOD COUNT [id number] MCHC 33.0 g/dL 1 Unknown COMPLETE BLOOD COUNT [id number] PLATELET COUNT 184 10e9/L 08/2020 Unknown COMPLETE BLOOD COUNT [id number] Mean Plt Volume 11.3 fL 08/2020 Unknown COMPLETE BLOOD COUNT [id number] Neut Auto 60.8 % 1 Unknown COMPLETE BLOOD COUNT [id number] Lymph Auto 26.4 % 05/05/20 21 Unknown COMPLETE BLOOD COUNT [id number] Pitt Auto 8.9 % 1 Unknown COMPLETE BLOOD COUNT [id number] RDW 13.0 % 1 Unknown COMPLETE BLOOD COUNT [id number] Eos Auto 3.1 % 1 Unknown COMPLETE BLOOD COUNT [id number] Baso Auto 0.8 % 1 Unknown COMPLETE BLOOD COUNT [id number] Neutrophil Abs 3.10 10e9/L Unknown COMPLETE BLOOD COUNT [id number] Lymphocyte Abs 1.35 10e9/L Unknown COMPLETE BLOOD COUNT [id number] Monocyte Abs 0.45 10e9/L 08/2020 Unknown COMPLETE BLOOD COUNT [id number] Eosinophil Abs 0.16 10e9/L Unknown COMPLETE BLOOD COUNT [id number] RDW-SD 44.3 fL 1 Unknown COMPLETE BLOOD COUNT [id number] Basophil Abs 0.04 10e9/L 08/2020 Unknown Procedures Procedure Codes Date ROUTINE VENIPUNCTURE CPT-4: 30932 05/05/2021 ASSAY OF FREE THYROXINE CPT-4: 90052 05/05/2021 ASSAY THYROID STIM HORMONE CPT-4: 71655 05/05/2021 COMPREHEN METABOLIC PANEL CPT-4: 53521 05/05/2021 COMPLETE CBC W/AUTO DIFF WBC CPT-4: 02059 05/05/2021 LIPID PANEL CPT-4: 13683 05/05/2021 Vital Signs Date Vital 05/04/2021 Blood Pressure 1: 134/86 Code: 8480-6 Bl ood Pressure 2: 132/84 Code: 8480-6 BMI: 32.5 Code: 23222-1 Heart Rate 1: 60 bpm Height: 6'1" Code: 8302-2 Respiratory Rate: 20 bpm SpO2: 96% Temperature: 36.8 (C) / 98.2 (F) We ight: 246 lbs Code: 62942-5 Functional Status No Functional Status data Reason For Visit Reason For Visit Effective Dates Notes lab draw 05/05/2021 ~generic 05/04/2021 New Patient---establ [facility] visit Encounters Encounter Performer Location Codes Date () NURSE/OUTPATIENT VISIT EST Diagnosis: Essential (primary) hypertension[ICD10: I10] Diagnosis: Mixed hyperlipidemia[ICD10: E78.2] Diagnosis: Obstructive sleep apnea[ICD10: G47.33] Diagnosis: Skipped beats[ICD10: I45.9] Nemo PASTRANA [employer] CPT-4: 23139 05/05/2021 (23121) OFFICE/OUTPATIENT VISIT NEW Diagnosis: Essential (primary) hypertension[ICD10: I10] Diagnosis: Mixed hyperlipidemia[ICD10: E78.2] Diagnosis: Trigger finger, left ring finger[ICD10: M65.342] Diagnosis: Trigger finger, right ring finger[ICD10: M65.341] Diagnosis: Skipped beats[ICD10: I45.9] Diagnosis: Obstructive sleep apnea[ICD10: G47.33] Nemo RUOSSEAU [employer] CPT-4: 10848 05/04/2021 Plan of Care Planned Activity Notes [...] I10 05/04/2021 Appointment: Nem[facility]Ptel[facility] [phone] [facility] [facility] 05/04/2021 Instructions No Instructions Medical Equipment No Medical Equipment data Health Concerns Section Health Concerns data not found Goals Section Goals data not found Interventions Section Interventions data not found Health Status Evaluations/Outcomes Section Health Status Evaluations/Outcomes data not found Advance Directives No Advance Directive data
--- OUTSIDE RECORDS SUMMARY | 2021-06-14 06:24 | XMS REPORT | CCD ---
Author Author Ross Rousseau D.O., DO [facility] Address [address] [place] [address] Phone Care Team Providers Care Cotton Dispatcher Name Role Phone PP Unavailable CCM Unavailable Summary Purpose Interface Exchange Insurance Providers Payer name Policy type / Coverage type Covered alliance party ID Effective Begin Date Effective End Date WPS MEDICARE PART B [place] Medicare Part B [id number] Unknown AAR Medicare Part B [id number] Unknown Family History Family History data not found Social History Social History Element Codes Description Effective Dates Marital status Unknown 05/04/2021 Number of children Unknown 1 05/04/2021 Employment Unknown Retired 05/04/[address]: 999492687 Has never smoked or chewed tobacco 05/04/[address]: 599525 Currently drinks alcohol 05/04 Has the patient [...] Instructions aspirin 81 mg tablet,delayed release RxNorm: 068928 Take 1 Tabl et(s) Oral QD 05/04/2021 No Stop Date Active metoprolol succinate ER 50 mg tablet,extended release 24 hr RxNorm: 270470 Take 1 Tablet(s) Oral QD 05/04/2021 No Stop Date Active atorvastatin 40 mg tablet RxNorm: 062459 Take 1 Tablet(s) Oral QD 1 07/04/2020 No Stop Date Active hydrochlorothiazide 25 mg tablet RxNorm: 489759 Take 1 Tablet(s ) Oral QAM 05/04/2021 08/01/2021 Active losartan 100 mg tablet RxNorm: 746053 Take 1 Tablet(s) Oral QD 08/202008/01/2021 Active glucosamine 500 kr-izkdhuolm-votcnoll comp 400 mg-D3 667 uni t-C-Mn cap RxNorm: Take 2 Capsule(s) Oral QD 05/04/2021 No Stop Date Active Medication Administered No Medication Administered data Immunizations No Immunization data Results No Results data Procedures No Procedures data Vital Signs Date Vital 05/04/2021 Blood Pressure 1: 134/86 Code: 8480-6 Bl ood Pressure 2: 132/84 Code: 8480-6 BMI: 32.5 Code: 71629-3 Heart Rate 1: 60 bpm Height: 6'1" Code: 8302-2 Respiratory Rate: 20 bpm SpO2: 96% Temperature: 36.8 (C) / 98.2 (F) We ight: 246 lbs Code: 59702-2 Functional Status No Functional Status data Reason For Visit Reason For Visit Effective Dates Notes ~generic 05/04/2021 [facility] Encounters Encounter Performer Location Codes Date (91749) OFFICE/OUTPATIENT VISIT NEW Diagnosis: Essential (primary) hypertension[ICD10: I10] Diagnosis: Mixed hyperlipidemia[ICD10: E78.2] Diagnosis: Trigger finger, left ring finger[ICD10: M65.342] Diagnosis: Trigger finger, right ring finger[ICD10: M65.341] Diagnosis: Skipped beats[ICD10: I45.9] Diagnosis: Obstructive sleep apnea[ICD10: G47.33] Nemo CHARLES DanicaJulian ROUSSEAU DO [facility] CPT-4: 67943 05/04/2021 Plan of Care Planned Activity Notes [...]
--- OUTSIDE RECORDS SUMMARY | 2021-06-14 06:24 | XMS REPORT | CCD ---
Author Author Ross Rousseau D.O., DO [facility] Address [address] [place] [address] Phone Care Team Providers Care Role Player Name Role Phone PP Unavailable CCM Unavailable Summary Purpose Interface Exchange Insurance Providers Payer name Policy type / Coverage type Covered republican ID Effective Begin Date Effective End Date WPS MEDICARE PART B [place] Medicare Part B [id number] Unknown AAR Medicare Part B [id number] Unknown Family History Family History data not found Social History Social History Element Codes Description Effective Dates Marital status Unknown 05/04/2021 Number of children Unknown 1 05/04/2021 Employment Unknown Retired 05/04/[address]: 320707716 Has never smoked or chewed tobacco 05/04/[address]: 259982 Currently drinks alcohol 05/04 Has the patient [...] Instructions aspirin 81 mg tablet,delayed release RxNorm: 756161 Take 1 Tabl et(s) Oral QD 05/04/2021 No Stop Date Active metoprolol succinate ER 50 mg tablet,extended release 24 hr RxNorm: 873074 Take 1 Tablet(s) Oral QD 05/04/2021 No Stop Date Active atorvastatin 40 mg tablet RxNorm: 268203 Take 1 Tablet(s) Oral QD 1 07/04/2020 No Stop Date Active hydrochlorothiazide 25 mg tablet RxNorm: 465675 Take 1 Tablet(s ) Oral QAM 05/04/2021 08/01/2021 Active losartan 100 mg tablet RxNorm: 910240 Take 1 Tablet(s) Oral QD 08/202008/01/2021 Active glucosamine 500 qp-ruxdhpczo-vnlnmfyp comp 400 mg-D3 667 uni t-C-Mn cap RxNorm: Take 2 Capsule(s) Oral QD 05/04/2021 No Stop Date Active Medication Administered No Medication Administered data Immunizations No Immunization data Results No Results data Procedures Procedure Codes Date ROUTINE VENIPUNCTURE CPT-4: 74342 05/05/2021 ASSAY OF FREE THYROXINE CPT-4: 15210 05/05/2021 ASSAY THYROID STIM HORMONE CPT-4: 21858 05/05/2021 COMPREHEN METABOLIC PANEL CPT-4: 17973 05/05/2021 COMPLETE CBC W/AUTO DIFF WBC CPT-4: 81804 05/05/2021 LIPID PANEL CPT-4: 03266 05/05/2021 Vital Signs Date Vital 05/04/2021 Blood Pressure 1: 134/86 Code: 8480-6 Bl ood Pressure 2: 132/84 Code: 8480-6 BMI: 32.5 Code: 95992-8 Heart Rate 1: 60 bpm Height: 6'1" Code: 8302-2 Respiratory Rate: 20 bpm SpO2: 96% Temperature: 36.8 (C) / 98.2 (F) We ight: 246 lbs Code: 25850-7 Functional Status No Functional Status data Reason For Visit Reason For Visit Effective Dates Notes lab draw 05/05/2021 ~generic 05/04/2021 New Patient---jose e box visit Encounters Encounter Performer Location Codes Date () NURSE/OUTPATIENT VISIT EST Diagnosis: Essential (primary) hypertension[ICD10: I10] Diagnosis: Mixed hyperlipidemia[ICD10: E78.2] Diagnosis: Obstructive sleep apnea[ICD10: G47.33] Diagnosis: Skipped beats[ICD10: I45.9] Nemo MENDOZA S. Mathew [employer] CPT-4: 86529 05/05/2021 (82687) OFFICE/OUTPATIENT VISIT NEW Diagnosis: Essential (primary) hypertension[ICD10: I10] Diagnosis: Mixed hyperlipidemia[ICD10: E78.2] Diagnosis: Trigger finger, left ring finger[ICD10: M65.342] Diagnosis: Trigger finger, right ring finger[ICD10: M65.341] Diagnosis: Skipped beats[ICD10: I45.9] Diagnosis: Obstructive sleep apnea[ICD10: G47.33] Nemo CHARLES DanicaJulian [employer] CPT-4: 32680 05/04/2021 Plan of Care Planned Activity Notes [...] I10 05/04/2021 Appointment: Nemo Rousseau [facility]Ptel: [phone] [facility] [facility] 05/04/2021 Instructions No Instructions Medical Equipment No Medical Equipment data Health Concerns Section Health Concerns data not found Goals Section Goals data not found Interventions Section Interventions data not found Health Status Evaluations/Outcomes Section Health Status Evaluations/Outcomes data not found Advance Directives No Advance Directive data
--- OUTSIDE RECORDS SUMMARY | 2021-06-14 06:24 | XMS REPORT | CCD ---
Author Author Ross Rousseau D.O., DO [facility] Address [address] [place] [address] Phone Care Team Providers Care Ground Water Pump Installer Name Role Phone PP Unavailable CCM Unavailable Summary Purpose Interface Exchange Insurance Providers Payer name Policy type / Coverage type Covered alliance party ID Effective Begin Date Effective End Date WPS MEDICARE PART B [place] Medicare Part B [id number] Unknown AAR Medicare Part B [id number] Unknown Family History Family History data not found Social History Social History Element Codes Description Effective Dates Marital status Unknown 05/04/2021 Number of children Unknown 1 05/04/2021 Employment Unknown Retired 05/04/[address]: 596926814 Has never smoked or chewed tobacco 05/04/[address]: 443605 Currently drinks alcohol 05/04 Has the patient [...] Instructions aspirin 81 mg tablet,delayed release RxNorm: 962348 Take 1 Tabl et(s) Oral QD 05/04/2021 No Stop Date Active metoprolol succinate ER 50 mg tablet,extended release 24 hr RxNorm: 433720 Take 1 Tablet(s) Oral QD 05/04/2021 No Stop Date Active atorvastatin 40 mg tablet RxNorm: 609318 Take 1 Tablet(s) Oral QD 1 07/04/2020 No Stop Date Active hydrochlorothiazide 25 mg tablet RxNorm: 094335 Take 1 Tablet(s ) Oral QAM 05/04/2021 08/01/2021 Active losartan 100 mg tablet RxNorm: 310645 Take 1 Tablet(s) Oral QD 08/202008/01/2021 Active glucosamine 500 lp-uqbscwcyd-qzrlslpr comp 400 mg-D3 667 uni t-C-Mn cap RxNorm: Take 2 Capsule(s) Oral QD 05/04/2021 No Stop Date Active Medication Administered No Medication Administered data Immunizations No Immunization data Results No Results data Procedures No Procedures data Vital Signs Date Vital 05/04/2021 Blood Pressure 1: 134/86 Code: 8480-6 Bl ood Pressure 2: 132/84 Code: 8480-6 BMI: 32.5 Code: 05843-7 Heart Rate 1: 60 bpm Height: 6'1" Code: 8302-2 Respiratory Rate: 20 bpm SpO2: 96% Temperature: 36.8 (C) / 98.2 (F) We ight: 246 lbs Code: 37171-9 Functional Status No Functional Status data Reason For Visit Reason For Visit Effective Dates Notes ~generic 05/04/2021 [facility] En[facility]ters Encounter Performer Location Codes Date (17041) OFFICE/OUTPATIENT VISIT NEW Diagnosis: Essential (primary) hypertension[ICD10: I10] Diagnosis: Mixed hyperlipidemia[ICD10: E78.2] Diagnosis: Trigger finger, left ring finger[ICD10: M65.342] Diagnosis: Trigger finger, right ring finger[ICD10: M65.341] Diagnosis: Skipped beats[ICD10: I45.9] Diagnosis: Obstructive sleep apnea[ICD10: G47.33] Nemo CHARLES DanicaJulian ROUSSEAU DO [facility] CPT-4: 39823 05/04/2021 Plan of Care Planned Activity Notes [...]
--- OUTSIDE RECORDS SUMMARY | 2021-06-14 06:24 | XMS REPORT | CCD ---
Author Author Ross Rousseau D.O., DO [facility] Address [address] [place] [address] Phone Care Team Providers Care Waterproof Bag Cutting Machine Operator Name Role Phone PP Unavailable CCM Unavailable Summary Purpose Interface Exchange Insurance Providers Payer name Policy type / Coverage type Covered constitution party ID Effective Begin Date Effective End Date WPS MEDICARE PART B [place] Medicare Part B [id number] Unknown AAR Medicare Part B [id number] Unknown Family History Family History data not found Social History Social History Element Codes Description Effective Dates Marital status Unknown 05/04/2021 Number of children Unknown 1 05/04/2021 Employment Unknown Retired 05/04/[address]: 395479029 Has never smoked or chewed tobacco 05/04/[address]: 904929 Currently drinks alcohol 05/04 Has the patient [...] Instructions aspirin 81 mg tablet,delayed release RxNorm: 537706 Take 1 Tabl et(s) Oral QD 05/04/2021 No Stop Date Active metoprolol succinate ER 50 mg tablet,extended release 24 hr RxNorm: 799855 Take 1 Tablet(s) Oral QD 05/04/2021 No Stop Date Active atorvastatin 40 mg tablet RxNorm: 587033 Take 1 Tablet(s) Oral QD 1 07/04/2020 No Stop Date Active hydrochlorothiazide 25 mg tablet RxNorm: 397048 Take 1 Tablet(s ) Oral QAM 05/04/2021 08/01/2021 Active losartan 100 mg tablet RxNorm: 656993 Take 1 Tablet(s) Oral QD 08/202008/01/2021 Active glucosamine 500 mr-jgxaiweyp-ihtodzaw comp 400 mg-D3 667 uni t-C-Mn cap RxNorm: Take 2 Capsule(s) Oral QD 05/04/2021 No Stop Date Active Medication Administered No Medication Administered data Immunizations No Immunization data Results No Results data Procedures No Procedures data Vital Signs Date Vital 05/04/2021 Blood Pressure 1: 134/86 Code: 8480-6 Bl ood Pressure 2: 132/84 Code: 8480-6 BMI: 32.5 Code: 51233-6 Heart Rate 1: 60 bpm Height: 6'1" Code: 8302-2 Respiratory Rate: 20 bpm SpO2: 96% Temperature: 36.8 (C) / 98.2 (F) We ight: 246 lbs Code: 82620-0 Functional Status No Functional Status data Reason For Visit Reason For Visit Effective Dates Notes ~generic 05/04/2021 [facility] En[facility]ters Encounter Performer Location Codes Date (30425) OFFICE/OUTPATIENT VISIT NEW Diagnosis: Essential (primary) hypertension[ICD10: I10] Diagnosis: Mixed hyperlipidemia[ICD10: E78.2] Diagnosis: Trigger finger, left ring finger[ICD10: M65.342] Diagnosis: Trigger finger, right ring finger[ICD10: M65.341] Diagnosis: Skipped beats[ICD10: I45.9] Diagnosis: Obstructive sleep apnea[ICD10: G47.33] Nemo CHARLES DanicaJulian ROUSSEAU DO [facility] CPT-4: 12610 05/04/2021 Plan of Care Planned Activity Notes [...] left ring finger Discussion: Referral to Dr. Nguyne to discuss surgical correction ICD-9 : 727.03 [...]
--- OUTSIDE RECORDS SUMMARY | 2021-06-14 06:24 | XMS REPORT | CCD ---
Author Author Ross Rousseau D.O., DO [facility] Address [address] [place] [address] Phone Care Team Providers Care Ceiling Installer Name Role Phone PP Unavailable CCM Unavailable Summary Purpose Interface Exchange Insurance Providers Payer name Policy type / Coverage type Covered republican ID Effective Begin Date Effective End Date WPS MEDICARE PART B [place] Medicare Part B [id number] Unknown AARP Medicare Part B [id number] Unknown Family History Family History data not found Social History Social History Element Codes Description Effective Dates Marital status Unknown 05/04/2021 Number of children Unknown 1 05/04/2021 Employment Unknown Retired 05/04/[address]: 732638670 Has never smoked or chewed tobacco 05/04/[address]: 505532 Currently drinks alcohol 05/04 Has the patient [...] Fill Instructions losartan 100 mg tablet RxNorm: 949107 Take 1 Tablet(s) Oral QD 01/202111/05/2021 Active hydrochlorothiazide 25 mg tablet RxNorm: 636153 Take 1 Tablet(s ) Oral QAM 05/10/2021 11/05/2021 Active atorvastatin 40 mg tablet RxNorm: 994760 Take 1 Tablet(s) Oral QD 1 07/10/2020 11/05/2021 Active metoprolol succinate ER 50 mg tablet,extended release 24 hr RxNorm: 227632 Take 1 Tablet(s) Oral QD 05/10/2021 11/05/2021 Active aspirin 81 mg tablet,delayed release RxNorm: 841446 Take 1 Tabl et(s) Oral QD 05/04/2021 No Stop Date Active metoprolol succinate ER 50 mg tablet,extended release 24 hr RxNorm: 097107 Take 1 Tablet(s) Oral QD 05/04/2021 05/10/2021 Inactive atorvastatin 40 mg tablet RxNorm: 818164 Take 1 Tablet(s) Oral QD 1 07/04/2020 05/10/2021 Inactive hydrochlorothiazide 25 mg tablet RxNorm: 296708 Take 1 Tablet(s ) Oral QAM 05/04/2021 05/10/2021 Inactive losartan 100 mg tablet RxNorm: 219874 Take 1 Tablet(s) Oral QD 08/202005/10/2021 Inactive glucosamine 500 zd-shlglsiwk-gubvamlh comp 400 mg-D3 667 uni t-C-Mn cap RxNorm: Take 2 Capsule(s) Oral QD 05/04/2021 No Stop Date Active Medication Administered No Medication Administered data Immunizations No Immunization data Results Observation Observation Code Item Item Code Result Date S ervice Location [facility] 96123 Cholesterol 126 mg/dL 05/05/2021 Unkno wn [facility] 11270 Triglyceride 81 mg/dL 05/05/2021 Unkn own [facility] 56783 HDL CHOLESTEROL 51 mg/dL 05/05/2021 U nknown [facility] 64405 Chol/HDL Ratio 2.47 ratio 05/05/2021 U nknown [facility] 92487 NON-HDL Chol 75 mg/dL 05/05/2021 Unkn own [facility] 45851 LDL Cholesterol 59 mg/dL 05/05/2021 U nknown FREE T4 28000 T4 Free 0.81 ng/dL 05/05/2021 Unknown [facility]PREHENS[facility] MET[facility]OL[facility] 64329 AST 18 U/L 2020 Unknown [facility] 56447 ALT 13 U/L 2020 Unknown [facility] 18447 BUN 11 mg/dL 2020 Unknown [facility] 86987 ALBUMIN 4.0 g/dL 2020 Unknown [facility]PREHENS[facility] 65100 CHLORIDE 105 mmol/L 05/05 Unknown COMPREHENSIVE METABOLIC 23708 Bili Total 0.9 mg/dL 05/05 Unknown COMPREHENSIVE METABOLIC 36064 ALK PHOS 66 U/L 2020 Unknown [facility] 28809 SODIUM 143 mmol/L 05/05 Unknown [facility]ENS[facility] 65793 CREATININE 0.80 mg/dL 08/2020 Unknown COMPREHENSIVE METABOLIC 22782 CALCIUM 9.0 mg/dL 2020 Unknown [facility] 37704 POTASSIUM 3.6 mmol/L 05/05 Unknown COMPREHENSIVE [facility]OL[facility] 01103 Total Protein 6.3 g/dL Unknown [facility] 84400 Glucose 93 mg/dL 2020 Unknown [facility] 09655 Bicarbonate 30 mmol/L 08/2020 Unknown COMPREHENSIVE METABOLIC 77581 AGAP 8 mmol/L 2020 Unknown GFR CALC 1695000 GFR Non Afr Amr >60 mL/min 05/05/2021 Un known GFR CALC 0965808 GFR Afr Amr >60 mL/min 05/05/2021 Unknow n THYROID STIMULATING HORMONE 11561 TSH 1.590 uIU/mL 05/05/2021 Unknown COMPLETE BLOOD COUNT 3518215 WBC 5.1 10e9/L 05/05/20 21 Unknown COMPLETE BLOOD COUNT [id number] RBC 4.76 10e12/L 2020 Unknown COMPLETE BLOOD COUNT 3424581 HEMOGLOBIN 15.0 g/dL 05/05/20 21 Unknown COMPLETE BLOOD COUNT 9305356 HEMATOCRIT 45.5 % 11/03/20 21 Unknown COMPLETE BLOOD COUNT 9801288 MCV 95.6 fL 1 Unknown COMPLETE BLOOD COUNT 3470676 MCH 31.5 pg 1 Unknown COMPLETE BLOOD COUNT 0645116 MCHC 33.0 g/dL 1 Unknown COMPLETE BLOOD COUNT 9517132 PLATELET COUNT 184 10e9/L 08/2020 Unknown COMPLETE BLOOD COUNT 9528104 Mean Plt Volume 11.3 fL 08/2020 Unknown COMPLETE BLOOD COUNT 7649417 Neut Auto 60.8 % 1 Unknown COMPLETE BLOOD COUNT 4305840 Lymph Auto 26.4 % 05/05/20 21 Unknown COMPLETE BLOOD COUNT 8439852 [place] Auto 8.9 % 1 Unknown COMPLETE BLOOD COUNT 1668171 RDW 13.0 % 1 Unknown COMPLETE BLOOD COUNT 4001120 Eos Auto 3.1 % 1 Unknown COMPLETE BLOOD COUNT 9238091 Baso Auto 0.8 % 1 Unknown COMPLETE BLOOD COUNT 4886836 Neutrophil Abs 3.10 10e9/L Unknown COMPLETE BLOOD COUNT 2897362 Lymphocyte Abs 1.35 10e9/L Unknown COMPLETE BLOOD COUNT 6043244 Monocyte Abs 0.45 10e9/L 08/2020 Unknown COMPLETE BLOOD COUNT 7479753 Eosinophil Abs 0.16 10e9/L Unknown COMPLETE BLOOD COUNT 1066365 RDW-SD 44.3 fL 1 Unknown COMPLETE BLOOD COUNT 2148825 Basophil Abs 0.04 10e9/L 08/2020 Unknown Procedures Procedure Codes Date ROUTINE VENIPUNCTURE CPT-4: 05211 05/05/2021 ASSAY OF FREE THYROXINE CPT-4: 51482 05/05/2021 ASSAY THYROID STIM HORMONE CPT-4: 55821 05/05/2021 COMPREHEN METABOLIC PANEL CPT-4: 91780 05/05/2021 COMPLETE CBC W/AUTO DIFF WBC CPT-4: 95345 05/05/2021 LIPID PANEL CPT-4: 83627 05/05/2021 Vital Signs Date Vital 05/04/2021 Blood Pressure 1: 134/86 Code: 8480-6 Bl ood Pressure 2: 132/84 Code: 8480-6 BMI: 32.5 Code: 47534-7 Heart Rate 1: 60 bpm Height: 6'1" Code: 8302-2 Respiratory Rate: 20 bpm SpO2: 96% Temperature: 36.8 (C) / 98.2 (F) We ight: 246 lbs Code: 24512-1 Functional Status No Functional Status data Reason For Visit Reason For Visit Effective Dates Notes lab draw 05/05/2021 ~generic 05/04/2021 New Patient---establ ishing visit Encounters Encounter Performer Location Codes Date () NURSE/OUTPATIENT VISIT EST Diagnosis: Essential (primary) hypertension[ICD10: I10] Diagnosis: Mixed hyperlipidemia[ICD10: E78.2] Diagnosis: Obstructive sleep apnea[ICD10: G47.33] Diagnosis: Skipped beats[ICD10: I45.9] Nemo PASTRANA DO [facility] CPT-4: 41984 05/05/2021 ([id number]) OFFICE/OUTPATIENT VISIT NEW Diagnosis: Essential (primary) hypertension[ICD10: I10] Diagnosis: Mixed hyperlipidemia[ICD10: E78.2] Diagnosis: Trigger finger, left ring finger[ICD10: M65.342] Diagnosis: Trigger finger, right ring finger[ICD10: M65.341] Diagnosis: Skipped beats[ICD10: I45.9] Diagnosis: Obstructive sleep apnea[ICD10: G47.33] Nemo ROUSSEAU DO [facility] CPT-4: 00313 05/04/2021 Plan of Care Planned Activity Notes Codes Status Date App[facility]ment: [facility] [phone] [facility] [facility] 05/05/2021 Visit Diagnosis Plan: Obstructive [...] 05/04/2021 Appointment: [facility] [phone] [facility] NEW PATIENT 05/04/2021 Instructions No Instructions Medical Equipment No Medical Equipment data Health Concerns Section Health Concerns data not found Goals Section Goals data not found Interventions Section Interventions data not found Health Status Evaluations/Outcomes Section Health Status Evaluations/Outcomes data not found Advance Directives No Advance Directive data
--- OUTSIDE RECORDS SUMMARY | 2021-06-14 06:24 | XMS REPORT | CCD ---
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 Sewing Machine Operator Semiautomatic Name Role Phone PP Unavailable CCM Unavailable Summary Purpose Interface Exchange Insurance Providers Payer name Policy type / Coverage type Covered libertarian ID Effective Begin Date Effective End Date WPS MEDICARE PART B [place] Medicare Part B [id number] Unknown AARP Medicare Part B [id number] Unknown Family History Family History data not found Social History Social History Element Codes Description Effective Dates Marital status Unknown 05/04/2021 Number of children Unknown 1 05/04/2021 Employment Unknown Retired 05/04/[address]: 216587714 Has never smoked or chewed tobacco 05/04/[address]: 082383 Currently drinks alcohol 05/04 Has the patient [...] Fill Instructions losartan 100 mg tablet RxNorm: 598087 Take 1 Tablet(s) Oral QD 01/202111/05/2021 Active hydrochlorothiazide 25 mg tablet RxNorm: 162924 Take 1 Tablet(s ) Oral QAM 05/10/2021 11/05/2021 Active atorvastatin 40 mg tablet RxNorm: 690938 Take 1 Tablet(s) Oral QD 1 07/10/2020 11/05/2021 Active metoprolol succinate ER 50 mg tablet,extended release 24 hr RxNorm: 631111 Take 1 Tablet(s) Oral QD 05/10/2021 11/05/2021 Active aspirin 81 mg tablet,delayed release RxNorm: 725735 Take 1 Tabl et(s) Oral QD 05/04/2021 No Stop Date Active metoprolol succinate ER 50 mg tablet,extended release 24 hr RxNorm: 514303 Take 1 Tablet(s) Oral QD 05/04/2021 05/10/2021 Inactive atorvastatin 40 mg tablet RxNorm: 483314 Take 1 Tablet(s) Oral QD 1 07/04/2020 05/10/2021 Inactive hydrochlorothiazide 25 mg tablet RxNorm: 198178 Take 1 Tablet(s ) Oral QAM 05/04/2021 05/10/2021 Inactive losartan 100 mg tablet RxNorm: 576101 Take 1 Tablet(s) Oral QD 08/202005/10/2021 Inactive glucosamine 500 xo-uflxwgrfk-jawfctss comp 400 mg-D3 667 uni t-C-Mn cap RxNorm: Take 2 Capsule(s) Oral QD 05/04/2021 No Stop Date Active Medication Administered No Medication Administered data Immunizations No Immunization data Results Observation Observation Code Item Item Code Result Date S ervice Location [facility] 44920 Cholesterol 126 mg/dL 05/05/2021 Unkno wn [facility] 96326 Triglyceride 81 mg/dL 05/05/2021 Unkn own [facility] 42383 HDL CHOLESTEROL 51 mg/dL 05/05/2021 U nknown [facility] 68066 Chol/HDL Ratio 2.47 ratio 05/05/2021 U nknown [facility] 31586 NON-HDL Chol 75 mg/dL 05/05/2021 Unkn own [facility] 66914 LDL Cholesterol 59 mg/dL 05/05/2021 U nknown FREE T4 29198 T4 Free 0.81 ng/dL 05/05/2021 Unknown [facility]PREHENS[facility]OL[facility] 46401 AST 18 U/L 2020 Unknown [facility]PREHENS[facility]OL[facility] 20515 ALT 13 U/L 2020 Unknown [facility]PREHENS[facility] 19177 BUN 11 mg/dL 2020 Unknown [facility] 35412 ALBUMIN 4.0 g/dL 2020 Unknown [facility]ENS[facility] 29121 CHLORIDE 105 mmol/L 05/05 Unknown COMPREHENSIVE METABOLIC 14036 Bili Total 0.9 mg/dL 05/05 Unknown COMPREHENSIVE METABOLIC 89592 ALK PHOS 66 U/L 2020 Unknown COMPREHENS[facility] 28188 SODIUM 143 mmol/L 05/05 Unknown COMPREHENSIVE [facility] 18288 CREATININE 0.80 mg/dL 08/2020 Unknown [facility]PRE[facility]ENS[facility] 33353 CALCIUM 9.0 mg/dL 2020 Unknown [facility]ENS[facility] 74937 POTASSIUM 3.6 mmol/L 05/05 Unknown COMPREHENS[facility] 17556 Total Protein 6.3 g/dL Unknown [facility] 63979 Glucose 93 mg/dL 2020 Unknown COMPREHENSIVE [facility] 45768 Bicarbonate 30 mmol/L 08/2020 Unknown COMPREHENSIVE METABOLIC 62475 AGAP 8 mmol/L 2020 Unknown GFR CALC 2366391 GFR Non Afr Amr >60 mL/min 05/05/2021 Un known GFR CALC 1171625 GFR Afr Amr >60 mL/min 05/05/2021 Unknow n THYROID STIMULATING HORMONE 76283 TSH 1.590 uIU/mL 05/05/2021 Unknown COMPLETE BLOOD COUNT 8936518 WBC 5.1 10e9/L 05/05/20 21 Unknown COMPLETE BLOOD COUNT 0856812 RBC 4.76 10e12/L 2020 Unknown COMPLETE BLOOD COUNT 9310460 HEMOGLOBIN 15.0 g/dL 05/05/20 21 Unknown COMPLETE BLOOD COUNT 3974935 HEMATOCRIT 45.5 % 11/03/20 21 Unknown COMPLETE BLOOD COUNT 7090283 MCV 95.6 fL 1 Unknown COMPLETE BLOOD COUNT 4254317 MCH 31.5 pg 1 Unknown COMPLETE BLOOD COUNT 7086061 MCHC 33.0 g/dL 1 Unknown COMPLETE BLOOD COUNT 1852249 PLATELET COUNT 184 10e9/L 08/2020 Unknown COMPLETE BLOOD COUNT 0644203 Mean Plt Volume 11.3 fL 08/2020 Unknown COMPLETE BLOOD COUNT 9670613 Neut Auto 60.8 % 1 Unknown COMPLETE BLOOD COUNT 6023826 Lymph Auto 26.4 % 05/05/20 21 Unknown COMPLETE BLOOD COUNT 6119316 [place] Auto 8.9 % 1 Unknown COMPLETE BLOOD COUNT 1048685 RDW 13.0 % 1 Unknown COMPLETE BLOOD COUNT 3978133 Eos Auto 3.1 % 1 Unknown COMPLETE BLOOD COUNT 3151092 Baso Auto 0.8 % 1 Unknown COMPLETE BLOOD COUNT 6696051 Neutrophil Abs 3.10 10e9/L Unknown COMPLETE BLOOD COUNT 2188731 Lymphocyte Abs 1.35 10e9/L Unknown COMPLETE BLOOD COUNT 8096843 Monocyte Abs 0.45 10e9/L 08/2020 Unknown COMPLETE BLOOD COUNT 0904260 Eosinophil Abs 0.16 10e9/L Unknown COMPLETE BLOOD COUNT 8507374 RDW-SD 44.3 fL 1 Unknown COMPLETE BLOOD COUNT 8622571 Basophil Abs 0.04 10e9/L 08/2020 Unknown Procedures Procedure Codes Date ROUTINE VENIPUNCTURE CPT-4: 38804 05/05/2021 ASSAY OF FREE THYROXINE CPT-4: 05902 05/05/2021 ASSAY THYROID STIM HORMONE CPT-4: 14873 05/05/2021 COMPREHEN METABOLIC PANEL CPT-4: 85363 05/05/2021 COMPLETE CBC W/AUTO DIFF WBC CPT-4: 81014 05/05/2021 LIPID PANEL CPT-4: 79006 05/05/2021 Vital Signs Date Vital 05/04/2021 Blood Pressure 1: 134/86 Code: 8480-6 Bl ood Pressure 2: 132/84 Code: 8480-6 BMI: 32.5 Code: 86668-1 Heart Rate 1: 60 bpm Height: 6'1" Code: 8302-2 Respiratory Rate: 20 bpm SpO2: 96% Temperature: 36.8 (C) / 98.2 (F) We ight: 246 lbs Code: 19583-1 Functional Status No Functional Status data Reason For Visit Reason For Visit Effective Dates Notes lab draw 05/05/2021 ~generic 05/04/2021 New Patient---establ ishing visit Encounters Encounter Performer Location Codes Date () NURSE/OUTPATIENT VISIT EST Diagnosis: Essential (primary) hypertension[ICD10: I10] Diagnosis: Mixed hyperlipidemia[ICD10: E78.2] Diagnosis: Obstructive sleep apnea[ICD10: G47.33] Diagnosis: Skipped beats[ICD10: I45.9] Nemo PASTRANA DO [facility] CPT-4: 59015 05/05/2021 ([id number]) OFFICE/OUTPATIENT VISIT NEW Diagnosis: Essential (primary) hypertension[ICD10: I10] Diagnosis: Mixed hyperlipidemia[ICD10: E78.2] Diagnosis: Trigger finger, left ring finger[ICD10: M65.342] Diagnosis: Trigger finger, right ring finger[ICD10: M65.341] Diagnosis: Skipped beats[ICD10: I45.9] Diagnosis: Obstructive sleep apnea[ICD10: G47.33] Nemo ROUSSEAU DO [facility] CPT-4: 88773 05/04/2021 Plan of Care Planned Activity Notes Codes Status Date Appointment: [facility] [phone] [facility] [facility]/05/2021 Visit Diagnosis Plan: Obstructive [...] I10 05/04/2021 Appointment: [facility] [phone] [facility] NEW [facility]IENT 05/04/2021 Instructions No Instructions Medical Equipment No Medical Equipment data Health Concerns Section Health Concerns data not found Goals Section Goals data not found Interventions Section Interventions data not found Health Status Evaluations/Outcomes Section Health Status Evaluations/Outcomes data not found Advance Directives No Advance Directive data
--- OUTSIDE RECORDS SUMMARY | 2021-06-14 06:24 | XMS REPORT | CCD ---
Author Author Ross Rousseau D.O., DO [facility] Address [address] [place] [address] Phone Care Team Providers Care Toll Line Repairer Name Role Phone PP Unavailable CCM Unavailable Summary Purpose Interface Exchange Insurance Providers Payer name Policy type / Coverage type Covered libertarian ID Effective Begin Date Effective End Date WPS MEDICARE PART B [place] Medicare Part B [id number] Unknown [place] Medicare Part B [id number] Unknown Family History Family History data not found Social History Social History Element Codes Description Effective Dates Marital status Unknown 05/04/2021 Number of children Unknown 1 05/04/2021 Employment Unknown Retired 05/04/[address]: 445971373 Has never smoked or chewed tobacco 05/04/[address]: 293908 Currently drinks alcohol 05/04 Has the patient [...] Instructions aspirin 81 mg tablet,delayed release RxNorm: 044827 Take 1 Tabl et(s) Oral QD 05/04/2021 No Stop Date Active metoprolol succinate ER 50 mg tablet,extended release 24 hr RxNorm: 686981 Take 1 Tablet(s) Oral QD 05/04/2021 No Stop Date Active atorvastatin 40 mg tablet RxNorm: 755114 Take 1 Tablet(s) Oral QD 1 07/04/2020 No Stop Date Active hydrochlorothiazide 25 mg tablet RxNorm: 572140 Take 1 Tablet(s ) Oral QAM 05/04/2021 08/01/2021 Active losartan 100 mg tablet RxNorm: 981443 Take 1 Tablet(s) Oral QD 08/202008/01/2021 Active glucosamine 500 vu-baudssykv-kazdkukl comp 400 mg-D3 667 uni t-C-Mn cap RxNorm: Take 2 Capsule(s) Oral QD 05/04/2021 No Stop Date Active Medication Administered No Medication Administered data Immunizations No Immunization data Results No Results data Procedures Procedure Codes Date ROUTINE VENIPUNCTURE CPT-4: 43449 05/05/2021 ASSAY OF FREE THYROXINE CPT-4: 23755 05/05/2021 ASSAY THYROID STIM HORMONE CPT-4: 83839 05/05/2021 COMPREHEN METABOLIC PANEL CPT-4: 42977 05/05/2021 COMPLETE CBC W/AUTO DIFF WBC CPT-4: 42076 05/05/2021 LIPID PANEL CPT-4: 76632 05/05/2021 Vital Signs Date Vital 05/04/2021 Blood Pressure 1: 134/86 Code: 8480-6 Bl ood Pressure 2: 132/84 Code: 8480-6 BMI: 32.5 Code: 14744-9 Heart Rate 1: 60 bpm Height: 6'1" Code: 8302-2 Respiratory Rate: 20 bpm SpO2: 96% Temperature: 36.8 (C) / 98.2 (F) We ight: 246 lbs Code: 99369-9 Functional Status No Functional Status data Reason For Visit Reason For Visit Effective Dates Notes lab draw 05/05/2021 ~generic 05/04/2021 New Patient---jose e box visit Encounters Encounter Performer Location Codes Date () NURSE/OUTPATIENT VISIT EST Diagnosis: Essential (primary) hypertension[ICD10: I10] Diagnosis: Mixed hyperlipidemia[ICD10: E78.2] Diagnosis: Obstructive sleep apnea[ICD10: G47.33] Diagnosis: Skipped beats[ICD10: I45.9] Nemo MENDOZA S. Mathew [email or web address] CPT-4: 37238 05/05/2021 ([id number]) OFFICE/OUTPATIENT VISIT NEW Diagnosis: Essential (primary) hypertension[ICD10: I10] Diagnosis: Mixed hyperlipidemia[ICD10: E78.2] Diagnosis: Trigger finger, left ring finger[ICD10: M65.342] Diagnosis: Trigger finger, right ring finger[ICD10: M65.341] Diagnosis: Skipped beats[ICD10: I45.9] Diagnosis: Obstructive sleep apnea[ICD10: G47.33] Nemo CHARLES DanicaJulian [employer] CPT-4: 13523 05/04/2021 Plan of Care Planned Activity Notes [...] I10 05/04/2021 Appointment: [facility] [phone] [facility] [facility] 05/04/2021 Instructions No Instructions Medical Equipment No Medical Equipment data Health Concerns Section Health Concerns data not found Goals Section Goals data not found Interventions Section Interventions data not found Health Status Evaluations/Outcomes Section Health Status Evaluations/Outcomes data not found Advance Directives No Advance Directive data
[2021-06-14] MEDS ORDERED: LACTATED RINGERS 1,000 ML IV PRN (06:30)
[2021-06-14] MEDS ORDERED: ceFAZolin 2 GM IV Premixed 50 ML IV ONE (06:30)
[2021-06-14] MEDS ORDERED: BUPIVACAINE 0.25% 30 ML (SENSORCAINE) VIAL ONE (06:51)
[2021-06-14] MEDS ORDERED: LIDOCAINE 1% INJ 20 ML 20 ML VIAL ONE (06:51)
[2021-06-14] MEDS ORDERED: fentaNYL INJ 100 MCG/2 ML AMP ONE (06:58)
[2021-06-14] MEDS ORDERED: PROPOFOL INJECTION 50 ML IV ONE (06:58)
[2021-06-14] MEDS ORDERED: MIDAZOLAM 2 MG/2 ML (VERSED) VIAL ONE (06:58)
[2021-06-14] MEDS ORDERED: NEO/POLY/BAC (NEOSPORIN) OINT 15 GM TUBE ONE (07:57)
[2021-06-14] MEDS ORDERED: TRM50T PO (08:04)
--- NOTE | 2021-06-14 08:09 | Operative Report - Ortho ---
Operative Report Surgeon (s)/Feeder Operator (s) Surgeon SANTANA OTOOLE MD Feeder Operator n/a Pre-Operative Diagnosis LEFT RING TRIGGER FINGER Post-Operative Diagnosis same Operative Report Date of Procedure: Jun 14, 2021 Name of Procedure Performed: Release of Left Ring Trigger finger Description & Findings After obtaining informed consent and marking the patient in the preoperative holding area, the patient was administered IV antibiotics and was taken to the operating room. Sedation was administered. Surgical timeout was taken. Local anesthetic was administered. The left upper extremity was prepped and draped in the usual sterile fashion. Incision was made over the A1 glendy of the ring finger. Blunt dissection was carried down to the glendy. Beginning proximally and working distally, the glendy was released. Tendon hook was used to assess the tendons and they were intact with minimal change from the triggering. Finger was put through motion and there was no triggering noted. Wound was irrigated with normal saline. Wound was closed with 4-0 nylon suture and dressed with antibiotic ointment, xeroform, 4x4s, tavares, cast padding, and ALE wrap. Patient tolerated the procedure well and was stable to the recovery room. Anesthesia Type MAC and sedation Estimated Blood Loss minimal Specimen(s) collected/removed none SANTANA OTOOLE MD Jun 14, 2021 08:09
--- NOTE | 2021-06-14 08:09 | Anesthesia-General Post-Op ---
MAC Patient Condition Mental Status/LOC: Same as Preop Cardiovascular: Satisfactory Nausea/Vomiting: Absent Respiratory: Satisfactory Pain: Controlled Complications: Absent Post Op Complications Complications None Follow Up Care/Instructions Patient Instructions None needed. Anesthesiology Discharge Order Discharge Order Patient is doing well, no complaints, stable vital signs, no apparent adverse anesthesia problems. No complications reported per nursing. NEFTALI AYOUB CRNA Jun 14, 2021 08:09
[2021-06-14] MEDS ORDERED: PROMETHAZINE INJ 25 MG/ML (PHENERGAN) AMP IVP ONE (08:15)
[2021-06-14] MEDS ORDERED: MEPERIDINE (DEMEROL) INJ 50 MG/ML IVP ONE (08:15)
[2021-06-14] MEDS ORDERED: ONDANSETRON 4 MG/2 ML (SDV) Z0FRAN IVP PRN (08:15)
[2021-06-14] MEDS ORDERED: morphine INJ 10 MG/ML 1ML (SYR OR VIAL) IVP ONE (08:15)
== END 2021-06-14 09:25 | disposition home or self-care (01) ==
LOC: SDC 06:21
PROVIDERS: ATTEND Orthopaedic Surgery
DX: M65.342 Trigger finger, left ring finger (principal); M65.341 Trigger finger, right ring finger; M65.331 Trigger finger, right middle finger; I10 Essential (primary) hypertension; G47.33 Obstructive sleep apnea (adult) (pediatric); E66.9 Obesity, unspecified; E78.00 Pure hypercholesterolemia, unspecified; Z79.899 Other long term (current) drug therapy; Z79.82 Long term (current) use of aspirin; Z68.32 Body mass index [BMI] 32.0-32.9, adult
CPT/HCPCS: 87081

== ENCOUNTER → 2021-06-29 | Outpatient (CLI) | payer MEDICARE ==
[~2021-06-29] MED LIST changes: +TRM50T PO
== END ==
LOC: ORTHO 08:34
PROVIDERS: ATTEND Orthopaedic Surgery
DX: Z47.89 Encounter for other orthopedic aftercare (principal)

== ENCOUNTER → 2021-07-29 | Outpatient (CLI) | payer MEDICARE | LOC: ORTHO 08:22 | PROVIDERS: ATTEND Orthopaedic Surgery | DX: Z47.89 Encounter for other orthopedic aftercare (principal) ==

== ENCOUNTER → 2021-08-18 | Outpatient (CLI) | payer MEDICARE ==
[2021-08-18 09:10] LABS: BASOPHILS % (AUTO) 1 % (0-10); EOSINOPHILS # (AUTO) 0.2 10^3/uL (0.0-0.3); EOSINOPHILS % (AUTO) 3 % (0-10); HEMATOCRIT 44 % (40-54); HEMOGLOBIN 15.1 g/dL (13.3-17.7); LYMPHOCYTES # (AUTO) 1.2 10^3/uL (1.0-4.0); LYMPHOCYTES % (AUTO) 23 % (12-44); MEAN CORPUSCULAR HEMOGLOBIN 31 pg (25-34); MEAN CORPUSCULAR HGB CONC 34 g/dL (32-36); MEAN CORPUSCULAR VOLUME 92 fL (80-99); MEAN PLATELET VOLUME 10.4 fL (9.0-12.2); MONOCYTES # (AUTO) 0.3 10^3/uL (0.0-1.0); MONOCYTES % (AUTO) 6 % (0-12); NEUTROPHILS # (AUTO) 3.5 10^3/uL (1.8-7.8); NEUTROPHILS % (AUTO) 67 % (42-75); PLATELET COUNT 179 10^3/uL (130-400); WHITE BLOOD COUNT 5.2 10^3/uL (4.3-11.0)
[2021-08-18 09:31] LABS: ALBUMIN 3.9 GM/DL (3.2-4.5); CALCIUM 8.7 MG/DL (8.5-10.1); CREATININE SERUM 0.79 MG/DL (0.60-1.30); MAGNESIUM 2.1 MG/DL (1.6-2.4); POTASSIUM 3.5 MMOL/L (3.6-5.0); TOTAL PROTEIN 6.5 GM/DL (6.4-8.2)
== END ==
LOC: LAB 08:44
PROVIDERS: ATTEND Internal Medicine Cardiovascular Disease
DX: I49.3 Ventricular premature depolarization (principal)
CPT/HCPCS: 36415; 80053; 83735; 84443; 85025

== ENCOUNTER → 2021-08-27 | Outpatient (CLI) | payer MEDICARE ==
[~2021-08-27] VITALS: Ht 185 cm; Wt 110.0 kg
[~2021-08-27] MED LIST changes: +REGADENOSON 0.4 MG/5 ML SYR (LEXISCAN) IV ONE
[2021-08-27] MEDS: CATHETER FLUSH 10 ML SYR IV PRN ×2 (07:10→09:17)
[2021-08-27 08:58] VITALS: BP 149/98
== END ==
LOC: CARD 07:30
PROVIDERS: ATTEND Internal Medicine Cardiovascular Disease
DX: I49.3 Ventricular premature depolarization (principal)
CPT/HCPCS: 78452; 93017; A9502

== ENCOUNTER → 2021-09-09 | Outpatient (CLI) | payer MEDICARE ==
[~2021-09-09] MED LIST changes: -REGADENOSON 0.4 MG/5 ML SYR (LEXISCAN) IV ONE
== END ==
LOC: ORTHO 08:15
PROVIDERS: ATTEND Orthopaedic Surgery
DX: M65.331 Trigger finger, right middle finger (principal)

== ENCOUNTER → 2021-09-09 | Outpatient (CLI) | payer MEDICARE ==
[2021-09-09 09:22] LABS: CALCIUM 8.8 MG/DL (8.5-10.1); CREATININE SERUM 0.77 MG/DL (0.60-1.30); MAGNESIUM 2.1 MG/DL (1.6-2.4); POTASSIUM 3.8 MMOL/L (3.6-5.0)
== END ==
LOC: LAB 08:49
PROVIDERS: ATTEND Nurse Practitioner Family
DX: E87.6 Hypokalemia (principal)
CPT/HCPCS: 36415; 80048; 83735

== ENCOUNTER → 2021-10-21 | Outpatient (CLI) | payer MEDICARE ==
[2021-10-21 09:45] LABS: CALCIUM 8.9 MG/DL (8.5-10.1); CREATININE SERUM 0.77 MG/DL (0.60-1.30); POTASSIUM 3.8 MMOL/L (3.6-5.0)
== END ==
LOC: LAB 09:01
PROVIDERS: ATTEND Internal Medicine Cardiovascular Disease
DX: I49.3 Ventricular premature depolarization (principal); I10 Essential (primary) hypertension; E78.2 Mixed hyperlipidemia; G47.33 Obstructive sleep apnea (adult) (pediatric)
CPT/HCPCS: 36415; 80048; 83735

== ENCOUNTER → 2021-12-14 | Outpatient (CLI) | payer MEDICARE | LOC: ORTHO 14:30 | PROVIDERS: ATTEND Orthopaedic Surgery | DX: M65.342 Trigger finger, left ring finger (principal) | CPT/HCPCS: 20551; G0463; 99213 ==

== ENCOUNTER → 2022-01-04 | Outpatient (CLI) | payer MEDICARE | LOC: ORTHO 10:35 | PROVIDERS: ATTEND Orthopaedic Surgery | DX: M65.342 Trigger finger, left ring finger (principal); M25.551 Pain in right hip | CPT/HCPCS: 99213 ==

== ENCOUNTER → 2022-05-04 | Outpatient (CLI) | payer MEDICARE ==
[2022-05-04 08:53] LABS: BASOPHILS # (AUTO) 0.1 10^3/uL (0.0-0.1); BASOPHILS % (AUTO) 1 % (0-10); EOSINOPHILS # (AUTO) 0.2 10^3/uL (0.0-0.3); EOSINOPHILS % (AUTO) 3 % (0-10); HEMATOCRIT 46 % (40-54); HEMOGLOBIN 15.4 g/dL (13.3-17.7); LYMPHOCYTES # (AUTO) 1.3 10^3/uL (1.0-4.0); LYMPHOCYTES % (AUTO) 27 % (12-44); MEAN CORPUSCULAR HEMOGLOBIN 31 pg (25-34); MEAN CORPUSCULAR HGB CONC 34 g/dL (32-36); MEAN CORPUSCULAR VOLUME 92 fL (80-99); MEAN PLATELET VOLUME 10.4 fL (9.0-12.2); MONOCYTES # (AUTO) 0.4 10^3/uL (0.0-1.0); MONOCYTES % (AUTO) 8 % (0-12); NEUTROPHILS % (AUTO) 61 % (42-75); PLATELET COUNT 165 10^3/uL (130-400); WHITE BLOOD COUNT 4.9 10^3/uL (4.3-11.0)
[2022-05-04 09:11] LABS: BAND NEUTROPHILS 0 %; BASOPHILS % (MANUAL) 0 %; EOSINOPHILS % (MANUAL) 4 %; LYMPHOCYTES % (MANUAL) 20 %; MONOCYTES % (MANUAL) 8 %; NEUTROPHILS % (MANUAL) 60 %; RBC MORPH NORMAL; REACTIVE LYMPHOCYTES 8 %
[2022-05-04 09:16] LABS: ALBUMIN 4.1 GM/DL (3.2-4.5); BILIRUBIN,TOTAL 0.8 MG/DL (0.1-1.0); CREATININE SERUM 0.75 MG/DL (0.60-1.30); POTASSIUM 3.9 MMOL/L (3.6-5.0); TOTAL PROTEIN 6.6 GM/DL (6.4-8.2)
[2022-05-04 09:37] LABS: FREE T4 (FREE THYROXINE) 0.9 NG/DL (0.70-1.48)
== END ==
LOC: LAB 08:22
PROVIDERS: ATTEND Nurse Practitioner Family
DX: Z12.5 Encounter for screening for malignant neoplasm of prostate (principal); E78.2 Mixed hyperlipidemia; I10 Essential (primary) hypertension; G47.33 Obstructive sleep apnea (adult) (pediatric); I45.9 Conduction disorder, unspecified
CPT/HCPCS: 80053; 80061; 84439; 84443; 85007; 85027; G0103; 36415; 84153

== ENCOUNTER 2022-10-19 10:05 | Emergency (ER) | payer MEDICARE ==
[~2022-10-19] VITALS: Ht 187 cm; Wt 110.2 kg
--- NOTE | 2022-10-19 10:11 | ED Cardiac General ---
History of Present Illness General Chief Complaint: Cardiac/General Problems Stated Complaint: RAPID HEART RATE History of Present Illness Date Seen by Provider: Oct 19, 2022 Time Seen by Provider: 10:11 Initial Comments 67-year-old male presents with rapid heart rate. Patient reports that started noticing little bit yesterday and was worse today. He has a monitor at home and it was reading very abnormal. Patient does have a history of PVCs but noticed they were increased on his monitor. EMS was called in which they were found he was having runs of V. tach/PVCs. His initial heart rate was in the 180s however this spontaneously slowed into the 80s to 100. Patient does complain of chest pain, nausea, vomiting. He reports some maybe mild shortness of breath but otherwise no acute symptoms. Allergies and Home Medications Allergies Coded Allergies: No Known Drug Allergies (Unverified , 06/07/21) Patient Home Medication List Home Medication List Reviewed: Yes Aspirin (Aspirin) 81 Mg Tab.chew, 81 MG PO DAILY, (Reported) Entered as Reported by: ALLY THOMPSON on 06/07/21 1023 Atorvastatin Calcium (Atorvastatin Calcium) 40 Mg Tablet, 40 MG PO HS, (Reported) Entered as Reported by: ALLY THOMPSON on 06/07/21 1023 Gluc/Chond/MSM/D3/Hyal/Mitesh Bor (Move Free Plus MSM-Vit D3 Tab) 1 Each Tablet, 1 EACH PO DAILY, (Reported) Entered as Reported by: ALLY THOMPSON on 06/07/21 1023 Hydrochlorothiazide (Hydrochlorothiazide) 25 Mg Tablet, 25 MG PO DAILY, (Reported) Entered as Reported by: ALLY THOMPSON on 06/07/21 1023 Losartan Potassium (Losartan Potassium) 100 Mg Tablet, 100 MG PO DAILY, (Reported) Entered as Reported by: ALLY THOMPSON on 06/07/21 1023 Metoprolol Succinate (Metoprolol Succinate) 50 Mg Tab.er.24h, 50 MG PO DAILY, (R eported) Entered as Reported by: ALLY THOMPSON on 06/07/21 1023 Tramadol HCl (Tramadol HCl) 50 Mg Tablet, 50 MG PO Q4H PRN for PAIN-MODERATE (5- 7) Prescribed by: SANTANA OTOOLE MD on 06/14/21 0805 Review of Systems Review of Systems Constitutional: see HPI; No chills, No fever EENTM: No Symptoms Reported Respiratory: See HPI Cardiovascular: See HPI, Palpitations Gastrointestinal: No Symptoms Reported Musculoskeletal: no symptoms reported Skin: no symptoms reported Psychiatric/Neurological: No Symptoms Reported Endocrine: No Symptoms Reported Past Rnyrbks-Uepjfe-Uahema Hx Immunizations Up To Date First/Initial COVID19 Vaccinat: august 2020 Second COVID19 Vaccination Albert: october 2020 Third COVID19 Vaccination Date: may 2021 Seasonal Allergies Seasonal Allergies: No Past Medical History Surgeries: Yes (last week tooth extraction) Tonsillectomy Respiratory: Yes Sleep Apnea Currently Using CPAP: No Currently Using BIPAP: No Cardiac: Yes High Cholesterol, Hypertension Neurological: No Genitourinary: No Gastrointestinal: No Musculoskeletal: No Endocrine: No HEENT: No Cancer: No Psychosocial: No Integumentary: No Blood Disorders: No Physical Exam Vital Signs Vital Signs - First Documented 10/19/22 10:09 Temp 36.6 Pulse 91 Resp 20 B/P (MAP) 199/92 (127) Pulse Ox 96 Capillary Refill : Height, Weight, BMI Height: '" Weight: lbs. oz. 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 Norm as Tested Progress/Results/Core Measures Results/Orders Lab Results Laboratory Tests Test 10/19/22 10:05 Range/Units White Blood Count 7.8 4.3-11.0 10^3/uL Red Blood Count 5.15 4.30-5.52 10^6/uL Hemoglobin 16.2 13.3-17.7 g/dL Hematocrit 48 40-54 % Mean Corpuscular Volume 93 80-99 fL Mean Corpuscular Hemoglobin 32 25-34 pg Mean Corpuscular Hemoglobin Concent 34 32-36 g/dL Red Cell Distribution Width 12.5 10.0-14.5 % Platelet Count 187 130-400 10^3/uL Mean Platelet Volume 11.0 9.0-12.2 fL Immature Granulocyte % (Auto) 0 % Neutrophils (%) (Auto) 67 42-75 % Lymphocytes (%) (Auto) 22 12-44 % Monocytes (%) (Auto) 8 0-12 % Eosinophils (%) (Auto) 2 0-10 % Basophils (%) (Auto) 1 0-10 % Neutrophils # (Auto) 5.2 1.8-7.8 10^3/uL Lymphocytes # (Auto) 1.7 1.0-4.0 10^3/uL Monocytes # (Auto) 0.6 0.0-1.0 10^3/uL Eosinophils # (Auto) 0.1 0.0-0.3 10^3/uL Basophils # (Auto) 0.1 0.0-0.1 10^3/uL Immature Granulocyte # (Auto) 0.0 0.0-0.1 10^3/uL Sodium Level 140 135-145 MMOL/L Potassium Level 4.2 3.6-5.0 MMOL/L Chloride Level 105 98-107 MMOL/L Carbon Dioxide Level 24 21-32 MMOL/L Anion Gap 11 5-14 MMOL/L Blood Urea Nitrogen 11 7-18 MG/DL Creatinine 0.96 0.60-1.30 MG/DL Estimat Glomerular Filtration Rate 86 BUN/Creatinine Ratio 11 Glucose Level 145 H 70-105 MG/DL Calcium Level 9.0 8.5-10.1 MG/DL Corrected Calcium 8.8 8.5-10.1 MG/DL Magnesium Level 2.2 1.6-2.4 MG/DL Total Bilirubin 0.9 0.1-1.0 MG/DL Aspartate Amino Transf (AST/SGOT) 18 5-34 U/L Alanine Aminotransferase (ALT/SGPT) 17 0-55 U/L Alkaline Phosphatase 89 40-136 U/L Troponin I < 0.028 <0.028 NG/ML Total Protein 6.7 6.4-8.2 GM/DL Albumin 4.2 3.2-4.5 GM/DL My Orders Orders - ESPINOSA,YONI L DO Cbc With Automated Diff (10/19/22 10:15) Comprehensive Metabolic Panel (10/19/22 10:15) Magnesium (10/19/22 10:15) Troponin I Andreas (10/19/22 10:15) Ekg Tracing (10/19/22 10:15) Monitor-Rhythm Ecg Trace Only (10/19/22 10:15) Ed Iv/Invasive Line Start (10/19/22 10:15) Ns Iv 500 Ml (Sodium Chloride 0.9%) (10/19/22 10:15) Medications Given in ED Current Medications Medications Dose Ordered Sig/[place] Route Start Time Stop Time Status Last Admin Dose Admin Sodium Chloride 500 ml @ 0 mls/hr Q0M ONCE IV 10/19/22 10:15 10/19/22 10:17 DC 10/19/22 10:24 0 MLS/HR Vital Signs/I&O 10/19/22 10:09 Temp 36.6 Pulse 91 Resp 20 B/P (MAP) 199/92 (127) Pulse Ox 96 Progress Progress Note : Progress Note Patient's diagnostic studies were ordered reviewed and interpreted by me. Patient has no acute findings on his labs. Patient's EKG shows sinus tach at 103 with some PVCs that are paired and a right bundle branch block. Patient has known PVCs. Patient was given a small bolus of fluids. His heart rate remained in the 70s to 80s while in the ER with no symptoms. He is currently on metoprolol that Dr. Sanchez prescribed. At this time there is no further work-up indicated with patient having known PVCs and on proper treatment. Recommended that he follow-up with Dr. Sanchez if it becomes more frequent. Patient was stable and discharged home Initial ECG Impression Date: Oct 19, 2022 Initial ECG Impression Time: 10:05 Initial ECG Rate: 103 Initial ECG Rhythm: S.Tach Comment sinus tach, frequent paired pvc's, RBBB Departure Impression Primary Impression: Frequent PVCs Disposition: HOME, SELF-CARE Condition: Stable Departure-Patient Inst. Referrals: GORDON ZARAGOZA MD FACP [facility] (PCP) Primary Care Physician REJI PEGUERO DO (Family) Primary Care Physician Patient Instructions: Arrhythmias, Palpitations ED Add. Discharge Instructions: Continue your current medications, be sure you are drinking plenty of fluids. Follow-up with Dr. Sanchez if symptoms become more frequent All discharge instructions reviewed with patient and/or family. Voiced understanding. YONI ESPINOSA DO Oct 19, 2022 10:11
[2022-10-19] MEDS ORDERED: NS IV 500 ML 500 ML IV ONE (10:15)
[2022-10-19 10:22] LABS: BASOPHILS # (AUTO) 0.1 10^3/uL (0.0-0.1); BASOPHILS % (AUTO) 1 % (0-10); EOSINOPHILS # (AUTO) 0.1 10^3/uL (0.0-0.3); EOSINOPHILS % (AUTO) 2 % (0-10); HEMATOCRIT 48 % (40-54); HEMOGLOBIN 16.2 g/dL (13.3-17.7); LYMPHOCYTES # (AUTO) 1.7 10^3/uL (1.0-4.0); LYMPHOCYTES % (AUTO) 22 % (12-44); MEAN CORPUSCULAR HEMOGLOBIN 32 pg (25-34); MEAN CORPUSCULAR HGB CONC 34 g/dL (32-36); MEAN CORPUSCULAR VOLUME 93 fL (80-99); MONOCYTES # (AUTO) 0.6 10^3/uL (0.0-1.0); MONOCYTES % (AUTO) 8 % (0-12); NEUTROPHILS # (AUTO) 5.2 10^3/uL (1.8-7.8); NEUTROPHILS % (AUTO) 67 % (42-75); PLATELET COUNT 187 10^3/uL (130-400); WHITE BLOOD COUNT 7.8 10^3/uL (4.3-11.0)
[2022-10-19 10:34] LABS: ALBUMIN 4.2 GM/DL (3.2-4.5)
[2022-10-19 10:35] LABS: CHLORIDE 105 MMOL/L (98-107); POTASSIUM 4.2 MMOL/L (3.6-5.0); SODIUM 140 MMOL/L (135-145)
[2022-10-19 10:37] LABS: GLUCOSE 145 MG/DL (70-105); TOTAL PROTEIN 6.7 GM/DL (6.4-8.2)
[2022-10-19 10:38] LABS: CARBON DIOXIDE 24 MMOL/L (21-32)
[2022-10-19 10:39] LABS: BILIRUBIN,TOTAL 0.9 MG/DL (0.1-1.0)
[2022-10-19 10:41] LABS: ALKALINE PHOSPHATASE 89 U/L (40-136); CREATININE SERUM 0.96 MG/DL (0.60-1.30); GFR ESTIMATED 86
[2022-10-19 10:42] LABS: BUN/CREATININE RATIO 11
[2022-10-19 10:44] LABS: ALANINE AMINOTRANSFERASE 17 U/L (0-55); MAGNESIUM 2.2 MG/DL (1.6-2.4)
[2022-10-19 11:13] VITALS: BP 172/91
== END 2022-10-19 11:13 | disposition home or self-care (01) ==
LOC: EDUNIT# 10:06 → ER 10:08
DX: I49.3 Ventricular premature depolarization (principal); I45.10 Unspecified right bundle-branch block; Z79.899 Other long term (current) drug therapy
CPT/HCPCS: 36415; 80053; 83735; 84484; 85025; 93005; 93041

== ENCOUNTER 2022-10-28 12:42 | Day surgery (SDC) | payer MEDICARE ==
[2022-10-28] VITALS (7 sets, daily range): BP systolic 145–185; BP diastolic 81–112
[~2022-10-28] VITALS: Ht 187 cm; Wt 110.4 kg
[2022-10-28] MEDS ORDERED: NS IV 1000 ML 1,000 ML IV ONE (13:15)
[2022-10-28 13:44] LABS: HEMATOCRIT 46 % (40-54); HEMOGLOBIN 15.4 g/dL (13.3-17.7); MEAN CORPUSCULAR HEMOGLOBIN 31 pg (25-34); MEAN CORPUSCULAR HGB CONC 33 g/dL (32-36); MEAN CORPUSCULAR VOLUME 93 fL (80-99); MEAN PLATELET VOLUME 10.7 fL (9.0-12.2); PLATELET COUNT 175 10^3/uL (130-400); WHITE BLOOD COUNT 7.1 10^3/uL (4.3-11.0)
[2022-10-28] MEDS ORDERED: MTP100TCR PO (13:47)
[2022-10-28 14:06] LABS: PROTHROMBIN TIME PATIENT 13.9 SEC (12.2-14.7)
[2022-10-28 14:15] LABS: ALBUMIN 4.3 GM/DL (3.2-4.5); BILIRUBIN,TOTAL 1.1 MG/DL (0.1-1.0); CALCIUM 8.6 MG/DL (8.5-10.1); CREATININE SERUM 0.86 MG/DL (0.60-1.30); POTASSIUM 3.7 MMOL/L (3.6-5.0); TOTAL PROTEIN 6.8 GM/DL (6.4-8.2)
[2022-10-28] MEDS ORDERED: HEParin 1000 UNIT/ML (10ML VIAL) FOR BOLUS ONE (14:43)
[2022-10-28] MEDS ORDERED: NS IV 1000 ML 1,000 ML ONE (14:43)
[2022-10-28] MEDS ORDERED: LIDOCAINE 1% INJ 20 ML VIAL ONE (14:43)
[2022-10-28] MEDS ORDERED: HEParin (CATH LAB) 2,000 ML IV ONE (14:43)
[2022-10-28] MEDS ORDERED: VERAPAMIL 5 MG/2 ML (CALAN) VIAL IV ONE (14:45)
[2022-10-28] MEDS ORDERED: NITRO DRIP 25000 MCG/D5W 250 ML IV ONE (14:45)
[2022-10-28] MEDS ORDERED: MIDAZOLAM 5 MG/5 ML (VERSED) VIAL ONE (14:45)
[2022-10-28] MEDS ORDERED: fentaNYL INJ 100 MCG/2 ML AMP ONE (14:45)
--- NOTE | 2022-10-28 15:46 | Cardiac Procedure Note-CS/ASA ---
Pre-Procedure Note Pre-Op Procedure Note Date of Available H&P: Oct 24, 2022 Date H&P Reviewed: Oct 28, 2022 Time H&P Reviewed: 15:00 History & Physical: H&P Reviewed, No changes noted Moderate Sedation PreProcedure ASA Score 3 Airway Lungs Heart ASA score ASA 1: a normal healthy patient ASA 2: a patient with a mild systemic disease (mid diabetes, controlled hypertension, obesity ASA 3: a patient with a severe systemic disease that limits activity (angina, COPD, prior Myocardial infarction) ASA 4: a patient with an incapacitating disease that is a constant threat to life (CHF, renal failure) ASA 5: a moribund patient not expected to survive 24 hrs. (ruptured aneurysm) ASA 6: a declared brain- patient whose organs are being harvested. For emergent operations, add the letter E after the classification Mallampati Classification Grade 2 Sedation Plan Analgesia, Amnesia, Plan communicated to team members The patient is an appropriate candidate to undergo the planned procedure, sedation, and anesthesia. The patient immediately re-assessed prior to indication. GORDON ZARAGOZA MD FACP [facility] Oct 28, 2022 15:45
--- NOTE | 2022-10-28 15:51 | Cardiac Cath Report ---
CARDIAC CATHETERIZATION DATE OF PROCEDURE: 10-28-22 INDICATION: Frequent PVCs HISTORY: The patient is a 67 year old male with frequent PVCs. CAD was a consideration PROCEDURES PERFORMED: 1. LHC and coronary angio PROCEDURE DESCRIPTION: After informed consent and in the fasting state, left heart catheterization was performed through the R Radial artery utilizing a 5 [place] system by percutaneous approach. TIG for LCA, JR4 for RCA, pigtail for LHC. LV ANGIO: in CAREY projection only; no wall motion abnormality; LVEF 50-55% HEMODYNAMICS: LVEDP 22 mmHg, no significant pressure gradient on pull back across the aortic valve CORONARY ANGIOGRAPHY: Left main coronary artery: ok Left anterior descending coronary artery: ok Left circumflex coronary artery: ok except 50% in ostial and prox OM1 Right coronary artery: dominant, ok IMPRESSION: 1. Approx 50% ostial and prox OM1 of LCx; no other significant disease seen; RCA dominant 2. LVEF 50-55% 3. LVEDP 22 mmHg GORDON ZARAGOZA MD F[facility] Oct 28, 2022 15:51
[2022-10-28] MEDS ORDERED: CLOP-31 PO (15:54)
[2022-10-28] MEDS ORDERED: ASPI-999 PO (15:54)
--- NOTE | 2022-10-28 15:55 | Discharge Inst-Cardiology ---
Discharge Inst-Cardiac Discharge Medications New Medications: Aspirin (Aspirin) 81 Mg Tab.chew 81 MG PO DAILY, #30 TAB 5 Refills Clopidogrel Bisulfate (Plavix) 75 Mg Tablet 75 MG PO DAILY for 30 Days, #30 TAB 5 Refills Continued Medications: Atorvastatin Calcium (Atorvastatin Calcium) 40 Mg Tablet 40 MG PO HS, TAB Gluc/Chond/MSM/D3/Hyal/Mitesh Bor (Move Free Plus MSM-Vit D3 Tab) 1 Each Tablet 1 EACH PO DAILY, TAB Losartan Potassium (Losartan Potassium) 100 Mg Tablet 100 MG PO DAILY, TAB Metoprolol Succinate (Metoprolol Succinate) 100 Mg Tab.er.24h 100 MG PO DAILY, TAB GORDON ZARAGOZA MD FACP [facility] Oct 28, 2022 15:55
--- NOTE | 2022-10-28 15:55 | Discharge Inst-Post CATH ---
Discharge Inst-CATH/EP Post Cardiac Cath/EP D/C Inst Follow Up/Plan F/u with Dr Preston in 1-2 weeks ACTIVITY * Go Home directly and rest. * Limit activity of the leg (or wrist if it was used) for 7 days including aerobics, swimming, jogging, bicycling, etc. * Restrict stair-climbing for 7 days if possible, if not, climb up with your non-cath leg, then bring together on the same step. * Avoid lifting, pushing, pulling or excessive movement of the affected extremity for 7 days. * Customary sexual activity may be resumed after 2 days-use caution not to use a position that strains or causes pain to the affected extremity. * No driving for 24 hours. * NO SMOKING. * Avoid straining for bowel movements for 7 days. * Gentle walking on level ground is allowed. * Returning to work will depend on the type of procedure and the results. Your doctor will discuss this with you. CALL YOUR DOCTOR FOR ANY OF THE FOLLOWING: *If bleeding from the puncture site occurs- Apply gentle pressure to site with clean cloth and call your doctor or EMS. * If a knot or lump forms under the skin, increases in size, or causes pain. * If bruising appears to be worsening or moving further down your leg instead of disappearing. * Temperature above 101 F. CARE OF YOUR GROIN INCISION; * Bruising or purple discoloration of the skin near the puncture site is common. * You may shower only, no bathtub bathing for 5 days. Be careful to avoid slipping as your leg may feel stiff. * If a closure device was used on your femoral artery, please see the attached guide regarding care of the device and your leg. * Leave dressing on FOR 24 hours. CARE OF YOUR WRIST INCISION; * Bruising or purple discoloration of the skin near the puncture site is common. * You may shower. * DO NOT submerge wrist. * Leave dressing on FOR 24 hours. GORDON PRESTON MD [facility] Oct 28, 2022 15:55
[2022-10-28] MEDS ORDERED: PATIENT MAY USE OWN MEDS, ALL PO SCH (16:00)
[2022-10-28] MEDS ORDERED: NS IV 1000 ML 1,000 ML IV SCH (16:00)
[2022-10-28] MEDS ORDERED: CLOPIDOGREL 75 MG (PLAVIX) TABLET PO NR (16:00)
[2022-10-28] MEDS ORDERED: ASPIRIN 81 MG CHEW (CHILDREN'S ASA) PO NR (16:00)
== END 2022-10-28 19:05 | disposition home or self-care (01) ==
LOC: CATH 12:42 → ICU 16:04 → CATH 19:05
PROVIDERS: ATTEND Internal Medicine Cardiovascular Disease
DX: I25.10 Atherosclerotic heart disease of native coronary artery without angina pectoris (principal); I49.3 Ventricular premature depolarization; I10 Essential (primary) hypertension; G47.33 Obstructive sleep apnea (adult) (pediatric); E78.2 Mixed hyperlipidemia; Z79.899 Other long term (current) drug therapy
CPT/HCPCS: 80053; 80061; 85027; 85610; 85730; 87081; 93005; 93458; C1894; 36415

== ENCOUNTER 2023-01-27 19:27 | Outpatient (CLI) | payer MEDICARE ==
[~2023-01-27 19:27] MED LIST changes: +CLOP-31 PO; -LOSA100T57 PO; +LOSA100T58 PO; +MTP100TCR PO
== END 2023-01-28 06:20 | disposition home or self-care (01) ==
LOC: SLEEP 19:27
PROVIDERS: ATTEND Otolaryngology Otolaryngology/Facial Plastic Surgery
DX: G47.33 Obstructive sleep apnea (adult) (pediatric) (principal); I49.9 Cardiac arrhythmia, unspecified; I10 Essential (primary) hypertension
CPT/HCPCS: 95811

== ENCOUNTER → 2023-05-16 | Outpatient (CLI) | payer MEDICARE | LOC: ORTHO 10:25 | PROVIDERS: ATTEND Orthopaedic Surgery | DX: M65.342 Trigger finger, left ring finger (principal); I10 Essential (primary) hypertension; E78.2 Mixed hyperlipidemia; G47.33 Obstructive sleep apnea (adult) (pediatric) ==